=== PATIENT | female | born 1975 | race Caucasian/White ===

== ENCOUNTER → 2021-06-07 08:43 | Outpatient (BNVA) | payer OTHER, MEDICAID, SELFPAY | PROVIDERS: PCP Internal Medicine; Visit Provider Psychiatry & Neurology Neurology | DX: G43.109 Migraine with aura, not intractable, without status migrainosus (principal); R51.9 Headache, unspecified | CPT/HCPCS: 64615; 99212; J0585 ==

== ENCOUNTER → 2021-09-17 08:22 | Outpatient (BNVA) | payer OTHER, SELFPAY | PROVIDERS: PCP Internal Medicine; Visit Provider Psychiatry & Neurology Neurology | DX: G43.109 Migraine with aura, not intractable, without status migrainosus (principal); Z79.899 Other long term (current) drug therapy | CPT/HCPCS: 64615; 99211; J0585 ==

== ENCOUNTER → 2022-03-14 11:05 | Outpatient (BNVA) | payer OTHER, SELFPAY | PROVIDERS: PCP Internal Medicine; Visit Provider Psychiatry & Neurology Neurology | DX: G43.119 Migraine with aura, intractable, without status migrainosus (principal); R47.81 Slurred speech | CPT/HCPCS: 64615; 99211; J0585 ==

== ENCOUNTER 2022-03-26 18:01 | Outpatient (REF) | payer OTHER, SELFPAY ==
--- NOTE | ~2022-03-26 | MR_ITS ---
EXAMINATION: MRI OF THE BRAIN WITHOUT CONTRAST CLINICAL INFORMATION: Slurred speech. COMPARISON: CT scan of the head [facility] 05/11/2019. TECHNIQUE: MRI of the brain was obtained using routine sequences without contrast. FINDINGS: No diffusion abnormalities are identified to suggest an acute or subacute infarct. No mass effect or midline shift is seen. The ventricles and sulci are normal in size. There are a few nonspecific foci of hyperintense T2 and FLAIR signal in the superior frontal gyri anteriorly bilaterally which are nonspecific. No extra-axial fluid collections are seen. The brainstem and cerebellum are normal. No pathologic magnetic susceptibility artifact is identified on the gradient refocused acquisition. The craniovertebral junction, marrow signal, and midline structures are normal. The major intracranial flow-voids at the level of the [place] are preserved. The dural venous sinus flow-voids are maintained. The mastoid air cells and paranasal sinuses are well-aerated. MR/MR head/brain wo con IMPRESSION: 1. There are no acute bleeds or infarcts. No masses are demonstrated. There are mild nonspecific white matter changes.
== END 2022-03-26 18:02 | disposition home or self-care (01) ==
LOC: HO.MRI 18:01
PROVIDERS: Visit Provider Psychiatry & Neurology Neurology
DX: R47.81 Slurred speech (principal); R51.9 Headache, unspecified
CPT/HCPCS: 70551

== ENCOUNTER → 2022-07-04 13:07 | Outpatient (BNVA) | payer OTHER, SELFPAY | PROVIDERS: PCP Internal Medicine; Visit Provider Psychiatry & Neurology Neurology | DX: G43.109 Migraine with aura, not intractable, without status migrainosus (principal); G43.119 Migraine with aura, intractable, without status migrainosus; R47.81 Slurred speech; R51.9 Headache, unspecified | CPT/HCPCS: 64615; 99211; J0585 ==

== ENCOUNTER → 2022-10-03 15:38 | Outpatient (BNVA) | payer OTHER, SELFPAY | PROVIDERS: PCP Internal Medicine; Visit Provider Psychiatry & Neurology Neurology | DX: G43.709 Chronic migraine without aura, not intractable, without status migrainosus (principal) | CPT/HCPCS: 64615; J0585 ==

== ENCOUNTER 2023-01-16 07:30 | Outpatient (AMB) | payer OTHER, SELFPAY ==
[2023-01-16 07:35] VITALS: BP 94/78; PULSE 112; O2SAT 95; BMI 23.7
--- NOTE | 2023-01-16 07:35 | A.OFFVIS_ITS ---
Intake Vital Signs 01/16/23 07:35 Height 5 ft 3 in Weight 134 lb BMI 23.7 BP 94/78 Blood Pressure Location Lt brachial Position Sitting Pulse 112 H Pulse Source Pulse Oximeter Pulse Oximetry (%) 95 Oxygen Delivery Method Room Air Intake Visit Reasons: Botox (Pharm)-confirmed Intake Note: Pt presents in office for Botox. 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 Allergies adhesive Allergy (Mild, Verified 01/16/23 07:39) red and blotchy latex Allergy (Mild, Verified 01/16/23 07:39) Hives Medication List - Last Reconciled 01/16/23 by Rica Rothman MD amitriptyline 75 mg PO BEDTIME carbamazepine ER (Tegretol XR) 100 mg PO BID 30 days citalopram 20 mg PO DAILY citalopram 10 mg PO DAILY cranberry fruit 400 mg PO DAILY esomeprazole magnesium (Nexium) 20 mg PO DAILY estradiol 0.01%(0.1mg/gram) 1 g vaginal 2XW fluticasone propionate 50 mcg/actuation 1 spray intranasal DAILY fluticasone propionate 110 mcg/actuation (Flovent HFA) 1 puff inhalation BID gabapentin TAKE 1 TO 2 TABLETS BY MOUTH TWICE A DAY NEEDED FOR PAIN levonorgestrel-ethinyl estrad 0.1-20 mg-mcg (Aviane) 1 tab PO DAILY loratadine 10 mg PO DAILY onabotulinumtoxinA (Botox) to be injected by physician intramuscularly; Inject muscle of head and neck over 31 sites every 3 months ondansetron HCl 4 mg PO Q8H PRN sumatriptan succinate 1 tab at onset of headaches , repeat in 2 hrs if needed upto 4tabs /day HPI HPI Comments History of Present Illness Details ??? 47y/o female comes for treatment of migraines with botox. ??? Most frequent reported adverse reactions following injection of botox for chronic migraine include neck pain (9%), headache(5%), eyelid ptosis(4%), migraine(4%), muscular weakness(4%), musculuskeletal stiffness(4%), bronchitis(3%), injection site pain (3%), musculoskeletal pain(3%), myalgia(3%), facial paresis(2%), HTN(2%) and muscle spasms(2%) were discussed in detail. ??? Botulinum toxin typeA 200units Lot no C [id number] expiration Jun 2025 was diluted with 4 cc of normal saline . ??? Muscles injected- ??? Frontalis 4 sites ??? Temporalis- 8 sites ??? Occipitalis- 6 sites ??? Cervical paraspinals- 4 sites ??? Trapezius- 6 sites-10 units each self defense instructor 2 sites Procerus 1 site ??? 5 units each in 31 site ??? Total use- 185units ??? Discarded-15units PFSH Medical History Anxiety Arthritis Facial pain Fibromyalgia History of ITP Problems related to lack of adequate sleep Surgical History H/O: hysterectomy History of ankle surgery S/P repair of nasal septum Family History Father HBP (high blood pressure) High cholesterol Mother Fibromyalgia Depression Acute arthritis Diverticulitis Sister Kidney problem Son ADHD Social History Alcohol intake: never Patient Tobacco Use Status: Never used Tobacco Substance Use Type: Marijuana Physical Exam Vital Signs: Last Vital Signs Pulse 112 H 01/16/23 07:35 BP 94/78 01/16/23 07:35 Pulse Ox 95 01/16/23 07:35 Oxygen Delivery Method Room Air 01/16/23 07:35 BMI result Body Mass Index 23.7 Const Orientation/consciousness: patient oriented x3 HEENT Head: Yes normal to inspection, Yes normocephalic and Yes atraumatic Eyes Pupils: Equal, round and reactive pupils present Neuro General: patient oriented x3, gait normal, tone normal, moves all extremities and no focal motor deficits Cranial nerves: Yes CN's II-XII intact bilaterally, Yes Equal, round and reactive pupils present and Yes Normal facial strength present Gait exam (Neuro): Normal gait present Motor exam (neuro): 5/5 motor strength present throughout Office Procedures Botulinum toxin Injection 10224 - Migraine Procedure code (CPT) selection complete Office Meds onabotulinumtoxinA Performing Provider: Rica Rothman MD Administered by: Rica Rothman MD on 01/16/23 08:12 Dose Route Admin Location Lot Number Expiration Date [employer] 185 unit subcut 0705-8324-97 [employer]ERGAN/BOTOX Comments: see hpi Assessment & Plan Assessment & Plan (1) Chronic migraine without aura, not intractable, without status migrainosus: Code(s): G43.709 - Chronic migraine without aura, not intractable, without status migrainosus Plan Patient tolerated the procedure well she will call with any side effects Continue tegretol XR 100mg bid Sumatriptan as needed Orders: Orders AMB Botulinum toxin Injection Today G43.709 - Chronic migraine without aura, not intractable, without status migrainosus Coding Level of Care Code Est Pt Level 1 (91302) Diagnoses Chronic migraine without aura, not intractable, without status migrainosus G43.709 CPT Codes Botox Injection - Botox 3: 74268 - Migraine ([id number])
== END 2023-01-16 08:01 | disposition home or self-care (01) ==
PROVIDERS: Visit Provider Psychiatry & Neurology Neurology
DX: G43.709 Chronic migraine without aura, not intractable, without status migrainosus (principal)
CPT/HCPCS: 64615

== ENCOUNTER → 2023-01-16 07:30 | Outpatient (BNVA) | payer OTHER, SELFPAY | PROVIDERS: Visit Provider Psychiatry & Neurology Neurology | DX: G43.709 Chronic migraine without aura, not intractable, without status migrainosus (principal); M79.7 Fibromyalgia | CPT/HCPCS: 64615; 99211; J0585 ==

== ENCOUNTER 2023-05-07 07:32 | Outpatient (AMB) | payer OTHER, SELFPAY ==
--- NOTE | 2023-05-07 07:38 | MHC.OFFVIS ---
Intake Vital Signs 05/07/23 07:41 Height 5 ft 3 in Intake Visit Reasons: Botox (Pharm)-Confirmed Intake Note: Patient presents for botox injection. Allergies adhesive Allergy (Mild, Verified 05/07/23 07:40) red and blotchy latex Allergy (Mild, Verified 05/07/23 07:40) Hives Medication List - Last Reconciled 05/07/23 by Rica Rothman MD amitriptyline 75 mg PO BEDTIME carbamazepine ER (Tegretol XR) 100 mg PO BID 30 days citalopram 20 mg PO DAILY citalopram 10 mg PO DAILY cranberry fruit 400 mg PO DAILY esomeprazole magnesium (Nexium) 20 mg PO DAILY estradiol 0.01%(0.1mg/gram) 1 g vaginal 2XW fluticasone propionate 50 mcg/actuation 1 spray intranasal DAILY fluticasone propionate 110 mcg/actuation (Flovent HFA) 1 puff inhalation BID gabapentin TAKE 1 TO 2 TABLETS BY MOUTH TWICE A DAY NEEDED FOR PAIN levonorgestrel-ethinyl estrad 0.1-20 mg-mcg (Aviane) 1 tab PO DAILY loratadine 10 mg PO DAILY onabotulinumtoxinA (Botox) to be injected by physician intramuscularly; Inject muscle of head and neck over 31 sites every 3 months ondansetron HCl 4 mg PO Q8H PRN sumatriptan succinate 1 tab at onset of headaches , repeat in 2 hrs if needed upto 4tabs /day HPI HPI Comments History of Present Illness Details ??? 47y/o female comes for treatment of migraines with botox. How many migraine days prior to botox- 30 days /month How long do the migraines last1-2 days Intensity of zijoyntw25/10 ER visits related to migraine- multiple Effectiveness of botox from last two treatment(s) How many migraine days since receiving treatment: 1-2 days a month Change? in intensity of migraine?decreased Change in frequency of migraine?decreased Change in use of acute medication for migraine?rare use Change in quality of life?improved ER visits related to migraine?none Have at least three months elapsed since last treatment (Last botox date - frequency of injections)01/2023 ??? Most frequent reported adverse reactions following injection of botox for chronic migraine include neck pain (9%), headache(5%), eyelid ptosis(4%), migraine(4%), muscular weakness(4%), musculuskeletal stiffness(4%), bronchitis(3%), injection site pain (3%), musculoskeletal pain(3%), myalgia(3%), facial paresis(2%), HTN(2%) and muscle spasms(2%) were discussed in detail. ??? Botulinum toxin typeA 200units Lot no C [id number] expiration August 2025 was diluted with 4 cc of normal saline . ??? Muscles injected- ??? Frontalis 4 sites ??? Temporalis- 8 sites ??? Occipitalis- 6 sites ??? Cervical paraspinals- 4 sites ??? Trapezius- 6 sites-10 units each interactive graphic designer 2 sites Procerus 1 site ??? 5 units each in 31 site ??? Total use- 185units ??? Discarded-15units [facility] Medical History Facial pain Problems related to lack of adequate sleep Fibromyalgia History of ITP Anxiety Arthritis Surgical History History of ankle surgery H/O: hysterectomy S/P repair of nasal septum Family History Father HBP (high blood pressure) High cholesterol Mother Fibromyalgia Depression Acute arthritis Diverticulitis Sister Kidney problem Son ADHD Social History Alcohol intake: never Patient Tobacco Use Status: Never used Tobacco Substance Use Type: Marijuana Physical Exam Const Orientation/consciousness: patient oriented x3 HEENT Head: Yes normal to inspection, Yes normocephalic and Yes atraumatic Eyes Pupils: Equal, round and reactive pupils present Neuro General: patient oriented x3, gait normal, tone normal, moves all extremities and no focal motor deficits Cranial nerves: Yes CN's II-XII intact bilaterally, Yes Equal, round and reactive pupils present and Yes Normal facial strength present Gait exam (Neuro): Normal gait present Motor exam (neuro): 5/5 motor strength present throughout Office Procedures Botulinum toxin Injection 91014 - Migraine Procedure code (CPT) selection complete Office Meds onabotulinumtoxinA 200 unit solution for injection Performing Provider: Rica Rothman MD Performing Location: [facility] Administered by: Rica Rothman MD on 05/07/23 08:23 Dose Route Admin Location Dispensed Lot Number Expiration Date [employer] 200 unit subcut 200 units [id number] 08/17/25 9178-6559-82 ALLERGAN/BOTOX Comments: see hPI Assessment & Plan Assessment & Plan (1) Chronic migraine without aura, not intractable, without status migrainosus: Code(s): G43.709 - Chronic migraine without aura, not intractable, without status migrainosus Plan Patient tolerated the procedure well she will call with any side effects Continue tegretol XR 100mg bid Sumatriptan as needed Orders: Orders AMB Botulinum toxin Injection Today G43.709 - Chronic migraine without aura, not intractable, without status migrainosus Coding Level of Care Code Est Pt Level 1 (17032) Diagnoses Chronic migraine without aura, not intractable, without status migrainosus G43.709 CPT Codes Botox Injection - Botox 3: 60477 - Migraine ([id number])
== END 2023-05-07 08:01 | disposition home or self-care (01) ==
PROVIDERS: PCP Internal Medicine; Visit Provider Psychiatry & Neurology Neurology
DX: G43.709 Chronic migraine without aura, not intractable, without status migrainosus (principal)
CPT/HCPCS: 64615

== ENCOUNTER → 2023-05-07 07:32 | Outpatient (BNVA) | payer OTHER, SELFPAY | PROVIDERS: PCP Internal Medicine; Visit Provider Psychiatry & Neurology Neurology | DX: G43.709 Chronic migraine without aura, not intractable, without status migrainosus (principal) | CPT/HCPCS: 64615; 99211; J0585 ==

== ENCOUNTER 2023-08-26 08:57 | Outpatient (AMB) | payer OTHER, SELFPAY ==
--- NOTE | 2023-08-26 09:00 | MHC.OFFVIS ---
Intake Vital Signs 08/26/23 09:01 Height 5 ft 3 in Weight 128 lb 6 oz BMI 22.7 BP 112/74 Blood Pressure Location Rt brachial Position Left Lateral Respiration 16 Pulse 106 H Pulse Source Pulse Oximeter Pulse Oximetry (%) 100 Oxygen Delivery Method Room Air Intake Visit Reasons: Botox-LVM Intake Note: Pt presents to the office for Botox injections. 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 Allergies adhesive Allergy (Mild, Verified 08/26/23 09:00) red and blotchy latex Allergy (Mild, Verified 08/26/23 09:00) Hives Medication List - Last Reconciled 08/26/23 by Rica Rothman MD amitriptyline 75 mg PO BEDTIME carbamazepine ER (Tegretol XR) 100 mg PO BID 90 days citalopram 20 mg PO DAILY citalopram 10 mg PO DAILY 90 days cranberry fruit 400 mg PO DAILY esomeprazole magnesium (Nexium) 20 mg PO DAILY estradiol 0.01%(0.1mg/gram) 1 g vaginal 2XW fluticasone propionate 50 mcg/actuation 1 spray intranasal DAILY fluticasone propionate 110 mcg/actuation (Flovent HFA) 1 puff inhalation BID gabapentin TAKE 1 TO 2 TABLETS BY MOUTH TWICE A DAY NEEDED FOR PAIN levonorgestrel-ethinyl estrad 0.1-20 mg-mcg (Aviane) 1 tab PO DAILY loratadine 10 mg PO DAILY onabotulinumtoxinA (Botox) to be injected by physician intramuscularly; Inject muscle of head and neck over 31 sites every 3 months ondansetron HCl 4 mg PO Q8H PRN sumatriptan succinate 1 tab at onset of headaches , repeat in 2 hrs if needed upto 4tabs /day HPI HPI Comments History of Present Illness Details ??? 47y/o female comes for treatment of migraines with botox. How many migraine days prior to botox- 30 days /month How long do the migraines last1-2 days Intensity of lpnrakgz25/10 ER visits related to migraine- multiple Effectiveness of botox from last two treatment(s) How many migraine days since receiving treatment: 1-2 days a month Change? in intensity of migraine?decreased Change in frequency of migraine?decreased Change in use of acute medication for migraine?rare use Change in quality of life?improved ER visits related to migraine?none Have at least three months elapsed since last treatment (Last botox date - frequency of injections)04/2023 ??? Most frequent reported adverse reactions following injection of botox for chronic migraine include neck pain (9%), headache(5%), eyelid ptosis(4%), migraine(4%), muscular weakness(4%), musculuskeletal stiffness(4%), bronchitis(3%), injection site pain (3%), musculoskeletal pain(3%), myalgia(3%), facial paresis(2%), HTN(2%) and muscle spasms(2%) were discussed in detail. ??? Botulinum toxin typeA 200units Lot no C [id number] expiration October 2025 was diluted with 4 cc of normal saline . ??? Muscles injected- ??? Frontalis 4 sites ??? Temporalis- 8 sites ??? Occipitalis- 6 sites ??? Cervical paraspinals- 4 sites ??? Trapezius- 6 sites-10 units each bingo worker 2 sites Procerus 1 site ??? 5 units each in 31 site ??? Total use- 185units ??? Discarded-15units [facility] Medical History Facial pain Problems related to lack of adequate sleep Fibromyalgia History of ITP Anxiety Arthritis Surgical History History of ankle surgery H/O: hysterectomy S/P repair of nasal septum Family History Father HBP (high blood pressure) High cholesterol Mother Fibromyalgia Depression Acute arthritis Diverticulitis Sister Kidney problem Son ADHD Social History Alcohol intake: never Patient Tobacco Use Status: Never used Tobacco Substance Use Type: Marijuana Physical Exam Vital Signs: Last Vital Signs Pulse 106 H 08/26/23 09:01 Resp 16 08/26/23 09:01 BP 112/74 08/26/23 09:01 Pulse Ox 100 08/26/23 09:01 Oxygen Delivery Method Room Air 08/26/23 09:01 BMI result Body Mass Index 22.7 Const Orientation/consciousness: patient oriented x3 HEENT Head: Yes normal to inspection, Yes normocephalic and Yes atraumatic Eyes Pupils: Equal, round and reactive pupils present Neuro General: patient oriented x3, gait normal, tone normal, moves all extremities and no focal motor deficits Cranial nerves: Yes CN's II-XII intact bilaterally, Yes Equal, round and reactive pupils present and Yes Normal facial strength present Gait exam (Neuro): Normal gait present Motor exam (neuro): 5/5 motor strength present throughout Office Procedures Botulinum toxin Injection 36561 - Migraine Procedure code (CPT) selection complete Office Meds onabotulinumtoxinA 200 unit solution for injection Performing Provider: Rica Rothman MD Performing Location: [facility] Administered by: Rica Rothman MD on 08/26/23 09:31 Dose Route Admin Location Dispensed Lot Number Expiration Date [facility] Knitter Mechanic 185 unit IM 200 units [id number] 10/17/25 6305-7274-07 [employer]ERGAN/BOTOX Comments: see HPI Assessment & Plan Assessment & Plan (1) Chronic migraine without aura, not intractable, without status migrainosus: Code(s): G43.709 - Chronic migraine without aura, not intractable, without status migrainosus Plan Patient tolerated the procedure well she will call with any side effects Continue tegretol XR 100mg bid Sumatriptan as needed Orders: Orders AMB Botulinum toxin Injection Today G43.709 - Chronic migraine without aura, not intractable, without status migrainosus Medications: New onabotulinumtoxinA 200 units IM ONCE 1 ea 0RF migraine G43.709 - Chronic migraine without aura, not intractable, without status migrainosus Coding Level of Care Code Est Pt Level 1 (78779) Diagnoses Chronic migraine without aura, not intractable, without status migrainosus G43.709 CPT Codes Botox Injection - Botox 3: 75374 - Migraine ([id number])
[2023-08-26 09:01] VITALS: BP 112/74; PULSE 106; RESP 16; O2SAT 100; BMI 22.7
== END 2023-08-26 09:21 | disposition home or self-care (01) ==
PROVIDERS: PCP Internal Medicine; Visit Provider Psychiatry & Neurology Neurology
DX: G43.709 Chronic migraine without aura, not intractable, without status migrainosus (principal)
CPT/HCPCS: 64615

== ENCOUNTER → 2023-08-26 08:57 | Outpatient (BNVA) | payer OTHER, SELFPAY | PROVIDERS: PCP Internal Medicine; Visit Provider Psychiatry & Neurology Neurology | DX: G43.709 Chronic migraine without aura, not intractable, without status migrainosus (principal); Z79.899 Other long term (current) drug therapy | CPT/HCPCS: 64615; 99211; J0585 ==

== ENCOUNTER 2023-12-03 07:31 | Outpatient (AMB) | payer OTHER, SELFPAY ==
--- NOTE | 2023-12-03 07:35 | A.OFFVIS_ITS ---
Vital Signs 12/03/23 07:43 Height 5 ft 3 in Weight 126 lb BMI 22.3 BP 98/68 Blood Pressure Location Rt brachial Position Sitting Respiration 16 Pulse 105 H Pulse Source Pulse Oximeter Pulse Oximetry (%) 98 Oxygen Delivery Method Room Air Intake Visit Reasons: Botox - Confirmed for Intake Note: Pt presents to the office for Botox injections for chronic migraines. Visual Journalist Required: No Allergies adhesive Allergy (Mild, Verified 12/03/23 07:35) red and blotchy latex Allergy (Mild, Verified 12/03/23 07:35) Hives Medication List - Last Reconciled 12/03/23 by Rica Rothman MD amitriptyline 75 mg PO BEDTIME carbamazepine ER (Tegretol XR) 100 mg PO BID 90 days citalopram 20 mg PO DAILY citalopram 10 mg PO DAILY 90 days cranberry fruit 400 mg PO DAILY esomeprazole magnesium (Nexium) 20 mg PO DAILY estradiol 0.01%(0.1mg/gram) 1 g vaginal 2XW fluticasone propionate 50 mcg/actuation 1 spray intranasal DAILY fluticasone propionate 110 mcg/actuation (Flovent HFA) 1 puff inhalation BID gabapentin TAKE 1 TO 2 TABLETS BY MOUTH TWICE A DAY NEEDED FOR PAIN levonorgestrel-ethinyl estrad 0.1-20 mg-mcg (Aviane) 1 tab PO DAILY loratadine 10 mg PO DAILY onabotulinumtoxinA (Botox) to be injected by physician intramuscularly; Inject muscle of head and neck over 31 sites every 3 months ondansetron HCl 4 mg PO Q8H PRN sumatriptan succinate 1 tab at onset of headaches , repeat in 2 hrs if needed upto 4tabs /day HPI Comments Details: ??? 48y/o female comes for treatment of migraines with botox. How many migraine days prior to botox- 30 days /month How long do the migraines last1-2 days Intensity of quwdwbsu32/10 ER visits related to migraine- multiple Effectiveness of botox from last two treatment(s) How many migraine days since receiving treatment: 1-2 days a month Change? in intensity of migraine?decreased Change in frequency of migraine?decreased Change in use of acute medication for migraine?rare use Change in quality of life?improved ER visits related to migraine?none Have at least three months elapsed since last treatment (Last botox date - frequency of injections)04/2023 ??? Most frequent reported adverse reactions following injection of botox for chronic migraine include neck pain (9%), headache(5%), eyelid ptosis(4%), migraine(4%), muscular weakness(4%), musculuskeletal stiffness(4%), bronchitis(3%), injection site pain (3%), musculoskeletal pain(3%), myalgia(3%), facial paresis(2%), HTN(2%) and muscle spasms(2%) were discussed in detail. ??? Botulinum toxin typeA 200units Lot no C [id number] expiration Dec 2025 was diluted with 4 cc of normal saline . ??? Muscles injected- ??? Frontalis 4 sites ??? Temporalis- 8 sites ??? Occipitalis- 6 sites ??? Cervical paraspinals- 4 sites ??? Trapezius- 6 sites-10 units each historical guide 2 sites Procerus 1 site ??? 5 units each in 31 site ??? Total use- 185units ??? Discarded-15units [facility] Medical History (Updated 12/03/23 @ 08:36 by Rica Rothman MD) Chronic migraine without aura, intractable, without status migrainosus Facial pain Problems related to lack of adequate sleep Fibromyalgia History of ITP Anxiety Arthritis Surgical History History of ankle surgery H/O: hysterectomy S/P repair of nasal septum Family History Father HBP (high blood pressure) High cholesterol Mother Fibromyalgia Depression Acute arthritis Diverticulitis Sister Kidney problem Son ADHD Social History Alcohol intake: never Patient Tobacco Use Status: Never used Tobacco Substance Use Type: Marijuana Physical Exam Vital Signs: Last Vital Signs Pulse 105 H 12/03/23 07:43 Resp 16 12/03/23 07:43 BP 98/68 12/03/23 07:43 Pulse Ox 98 12/03/23 07:43 Oxygen Delivery Method Room Air 12/03/23 07:43 BMI result Body Mass Index 22.3 Const Orientation/consciousness: patient oriented x3 HEENT Head: Yes normal to inspection, Yes normocephalic and Yes atraumatic Eyes Pupils: Equal, round and reactive pupils present Neuro General: patient oriented x3, gait normal, tone normal, moves all extremities and no focal motor deficits Cranial nerves: Yes CN's II-XII intact bilaterally, Yes Equal, round and reactive pupils present and Yes Normal facial strength present Gait exam (Neuro): Normal gait present Motor exam (neuro): 5/5 motor strength present throughout Office Procedures Botulinum toxin Injection 59213 - Migraine Procedure code (CPT) selection complete Office Meds onabotulinumtoxinA 200 unit solution for injection Performing Provider: Rica Rothman MD Performing Location: [facility] Administered by: Rica Rothman MD on 12/03/23 08:46 Dose Route Admin Location Dispensed Lot Number Expiration Date [facility] [employer]aver 200 unit subcut 200 units [id number] 12/17/25 3174-8312-98 [employer]ERGAN/BOTOX Comments: see HPI Assessment & Plan Assessment & Plan (1) Chronic migraine without aura, intractable, without status migrainosus: Code(s): G43.719 - Chronic migraine without aura, intractable, without status migrainosus Category: Medical Plan Patient tolerated the procedure well she will call with any side effects Orders: Orders AMB Botulinum toxin Injection Today G43.719 - Chronic migraine without aura, intractable, without status migrainosus Medications: New onabotulinumtoxinA 200 units subcut ONCE 1 ea 0RF migraine G43.719 - Chronic migraine without aura, intractable, without status migrainosus Coding Level of Care Code Est Pt Level 1 (36313) Diagnoses Chronic migraine without aura, intractable, without status migrainosus G43.719 CPT Codes Botox Injection - Botox 3: 31076 - Migraine ([id number])
[2023-12-03 07:37] VITALS: BMI 22.7
[2023-12-03 07:43] VITALS: BP 98/68; PULSE 105; RESP 16; O2SAT 98; BMI 22.3
== END 2023-12-03 08:03 | disposition home or self-care (01) ==
PROVIDERS: PCP Internal Medicine; Visit Provider Psychiatry & Neurology Neurology
DX: G43.719 Chronic migraine without aura, intractable, without status migrainosus (principal)
CPT/HCPCS: 64615

== ENCOUNTER → 2023-12-03 07:31 | Outpatient (BNVA) | payer OTHER, SELFPAY | PROVIDERS: PCP Internal Medicine; Visit Provider Psychiatry & Neurology Neurology | DX: G43.719 Chronic migraine without aura, intractable, without status migrainosus (principal) | CPT/HCPCS: 64615; 99211; J0585 ==

== ENCOUNTER 2024-03-10 07:36 | Outpatient (AMB) | payer OTHER, SELFPAY ==
--- NOTE | 2024-03-10 07:36 | A.OFFVIS_ITS ---
Vital Signs 03/10/24 07:37 Height 5 ft 3 in Weight 126 lb BMI 22.3 Intake Visit Reasons: Botox Intake Note: Patiient presents for botox Allergies adhesive Allergy (Mild, Verified 03/10/24 07:41) red and blotchy latex Allergy (Mild, Verified 03/10/24 07:41) Hives Medication List - Last Reconciled 03/10/24 by Rica Rothman MD amitriptyline 75 mg PO BEDTIME carbamazepine ER (Tegretol XR) 100 mg PO BID 90 days citalopram 20 mg PO DAILY citalopram 10 mg PO DAILY 90 days cranberry fruit 400 mg PO DAILY esomeprazole magnesium (Nexium) 20 mg PO DAILY estradiol 0.01%(0.1mg/gram) 1 g vaginal 2XW fluticasone propionate 50 mcg/actuation 1 spray intranasal DAILY fluticasone propionate 110 mcg/actuation (Flovent HFA) 1 puff inhalation BID gabapentin TAKE 1 TO 2 TABLETS BY MOUTH TWICE A DAY NEEDED FOR PAIN levonorgestrel-ethinyl estrad 0.1-20 mg-mcg (Aviane) 1 tab PO DAILY loratadine 10 mg PO DAILY onabotulinumtoxinA (Botox) to be injected by physician intramuscularly; Inject muscle of head and neck over 31 sites every 3 months ondansetron HCl 4 mg PO Q8H PRN sumatriptan succinate 1 tab at onset of headaches , repeat in 2 hrs if needed upto 4tabs /day HPI Comments Details: ??? 48y/o female comes for treatment of migraines with botox. How many migraine days prior to botox- 30 days /month How long do the migraines last1-2 days Intensity of /10 ER visits related to migraine- multiple Effectiveness of botox from last two treatment(s) How many migraine days since receiving treatment: 1-2 days a month Change? in intensity of migraine?decreased Change in frequency of migraine?decreased Change in use of acute medication for migraine?rare use Change in quality of life?improved ER visits related to migraine?none Have at least three months elapsed since last treatment- yes ??? Most frequent reported adverse reactions following injection of botox for chronic migraine include neck pain (9%), headache(5%), eyelid ptosis(4%), migraine(4%), muscular weakness(4%), musculuskeletal stiffness(4%), bronchitis(3%), injection site pain (3%), musculoskeletal pain(3%), myalgia(3%), facial paresis(2%), HTN(2%) and muscle spasms(2%) were discussed in detail. ??? Botulinum toxin typeA 200units Lot no [id number] expiration Apr 2026 was diluted with 4 cc of normal saline . ??? Muscles injected- ??? Frontalis 4 sites ??? Temporalis- 8 sites ??? Occipitalis- 6 sites ??? Cervical paraspinals- 4 sites ??? Trapezius- 6 sites-10 units each fitness sales associate 2 sites Procerus 1 site ??? 5 units each in 31 site ??? Total use- 185units ??? Discarded-15units [facility] Medical History Chronic migraine without aura, intractable, without status migrainosus Facial pain Problems related to lack of adequate sleep Fibromyalgia History of ITP Anxiety Arthritis Surgical History History of ankle surgery H/O: hysterectomy S/P repair of nasal septum Family History Father HBP (high blood pressure) High cholesterol Mother Fibromyalgia Depression Acute arthritis Diverticulitis Sister Kidney problem Son ADHD Social History Alcohol intake: never Patient Tobacco Use Status: Never used Tobacco Substance Use Type: Marijuana Physical Exam Vital Signs: BMI result Body Mass Index 22.3 Const Orientation/consciousness: patient oriented x3 HEENT Head: Yes normal to inspection, Yes normocephalic and Yes atraumatic Eyes Pupils: Equal, round and reactive pupils present Neuro General: patient oriented x3, gait normal, tone normal, moves all extremities and no focal motor deficits Cranial nerves: Yes CN's II-XII intact bilaterally, Yes Equal, round and reactive pupils present and Yes Normal facial strength present Gait exam (Neuro): Normal gait present Motor exam (neuro): 5/5 motor strength present throughout Office Procedures Botulinum toxin Injection 55299 - Migraine Procedure code (CPT) selection complete Office Meds onabotulinumtoxinA 200 unit solution for injection Performing Provider: Rica Rothman MD Performing Location: [facility] [place] Administered by: Rica Rothman MD on 03/10/24 09:28 Dose Route Admin Location Dispensed Lot Number Expiration Date NDC Commercial Drone Pilot 185 unit subcut 200 units [id number] 04/18/26 9029-8571-23 ALLERGAN/BOTOX Comments: see HPI Assessment & Plan Assessment & Plan (1) Chronic migraine without aura, intractable, without status migrainosus: Code(s): G43.719 - Chronic migraine without aura, intractable, without status migrainosus Category: Medical Plan Patient tolerated the procedure well she will call with any side effects Orders: Orders AMB Botulinum toxin Injection Today G43.719 - Chronic migraine without aura, intractable, without status migrainosus Medications: New onabotulinumtoxinA 200 units subcut ONCE 1 ea 0RF Migraine G43.719 - Chronic migraine without aura, intractable, without status migrainosus Coding Level of Care Code Est Pt Level 1 (60044) Diagnoses Chronic migraine without aura, intractable, without status migrainosus G43.719 CPT Codes Botox Injection - Botox 3: 06673 - Migraine ([id number])
[2024-03-10 07:37] VITALS: BMI 22.3
== END 2024-03-10 08:04 | disposition home or self-care (01) ==
PROVIDERS: PCP Internal Medicine; Visit Provider Psychiatry & Neurology Neurology
DX: G43.719 Chronic migraine without aura, intractable, without status migrainosus (principal)
CPT/HCPCS: 64615

== ENCOUNTER → 2024-03-10 07:36 | Outpatient (BNVA) | payer OTHER, SELFPAY | PROVIDERS: PCP Internal Medicine; Visit Provider Psychiatry & Neurology Neurology | DX: G43.719 Chronic migraine without aura, intractable, without status migrainosus (principal) | CPT/HCPCS: 64615; 99211; J0585 ==

== ENCOUNTER 2024-06-08 07:36 | Outpatient (AMB) | payer OTHER, SELFPAY ==
--- NOTE | 2024-06-08 07:37 | A.OFFVIS_ITS ---
Vital Signs 06/08/24 07:37 Height 5 ft 3 in Intake Visit Reasons: Botox Intake Note: Patient presents for botox Allergies adhesive Allergy (Mild, Verified 03/10/24 07:41) red and blotchy latex Allergy (Mild, Verified 03/10/24 07:41) Hives Medication List - Last Reconciled 06/08/24 by Rica Rothman MD amitriptyline 75 mg PO BEDTIME carbamazepine ER (Tegretol XR) 100 mg PO BID 90 days citalopram 20 mg PO DAILY citalopram 10 mg PO DAILY 90 days cranberry fruit 400 mg PO DAILY esomeprazole magnesium (Nexium) 20 mg PO DAILY estradiol 0.01%(0.1mg/gram) 1 g vaginal 2XW fluticasone propionate 50 mcg/actuation 1 spray intranasal DAILY fluticasone propionate 110 mcg/actuation (Flovent HFA) 1 puff inhalation BID gabapentin TAKE 1 TO 2 TABLETS BY MOUTH TWICE A DAY NEEDED FOR PAIN levonorgestrel-ethinyl estrad 0.1-20 mg-mcg (Aviane) 1 tab PO DAILY loratadine 10 mg PO DAILY onabotulinumtoxinA (Botox) to be injected by physician intramuscularly; Inject muscle of head and neck over 31 sites every 3 months ondansetron HCl 4 mg PO Q8H PRN sumatriptan succinate 1 tab at onset of headaches , repeat in 2 hrs if needed upto 4tabs /day HPI Comments Details: ??? 48y/o female comes for treatment of migraines with botox. How many migraine days prior to botox- 30 days /month How long do the migraines last1-2 days Intensity of [id number]/10 ER visits related to migraine- multiple Effectiveness of botox from last two treatment(s) How many migraine days since receiving treatment: 1-2 days a month Change? in intensity of migraine?decreased Change in frequency of migraine?decreased Change in use of acute medication for migraine?rare use Change in quality of life?improved ER visits related to migraine?none Have at least three months elapsed since last treatment- yes ??? Most frequent reported adverse reactions following injection of botox for chronic migraine include neck pain (9%), headache(5%), eyelid ptosis(4%), migraine(4%), muscular weakness(4%), musculuskeletal stiffness(4%), bronchitis(3%), injection site pain (3%), musculoskeletal pain(3%), myalgia(3%), facial paresis(2%), HTN(2%) and muscle spasms(2%) were discussed in detail. ??? Botulinum toxin typeA 200units Lot no [id number] expiration Jan 2026 was diluted with 4 cc of normal saline . ??? Muscles injected- ??? Frontalis 4 sites ??? Temporalis- 8 sites ??? Occipitalis- 6 sites ??? Cervical paraspinals- 4 sites ??? Trapezius- 6 sites-10 units each tailor garment fitter 2 sites Procerus 1 site ??? 5 units each in 31 site ??? Total use- 185units ??? Discarded-15units [facility] Medical History Chronic migraine without aura, intractable, without status migrainosus Facial pain Problems related to lack of adequate sleep Fibromyalgia History of ITP Anxiety Arthritis Surgical History History of ankle surgery H/O: hysterectomy S/P repair of nasal septum Family History Father HBP (high blood pressure) High cholesterol Mother Fibromyalgia Depression Acute arthritis Diverticulitis Sister Kidney problem Son ADHD Social History Alcohol intake: never Patient Tobacco Use Status: Never used Tobacco Substance Use Type: Marijuana Physical Exam Const Orientation/consciousness: patient oriented x3 HEENT Head: Yes normal to inspection, Yes normocephalic and Yes atraumatic Eyes Pupils: Equal, round and reactive pupils present Neuro General: patient oriented x3, gait normal, tone normal, moves all extremities and no focal motor deficits Cranial nerves: Yes CN's II-XII intact bilaterally, Yes Equal, round and reactive pupils present and Yes Normal facial strength present Gait exam (Neuro): Normal gait present Motor exam (neuro): 5/5 motor strength present throughout Office Procedures Botulinum toxin Injection 34216 - Migraine Procedure code (CPT) selection complete Office Meds onabotulinumtoxinA 200 unit solution for injection Performing Provider: Rica Rothman MD Performing Location: [facility] [place] [facility] Administered by: Rica Rothman MD on 06/08/24 08:45 Dose Route Admin Location Dispensed Lot Number Expiration Date [facility] Electromedical Service Engineer 185 unit subcut 200 units [id number] ALLERGAN/BOTOX Comments: see hpi Assessment & Plan Assessment & Plan (1) Chronic migraine without aura, intractable, without status migrainosus: Code(s): G43.719 - Chronic migraine without aura, intractable, without status migrainosus Category: Medical Plan Patient tolerated the procedure well she will call with any side effects Coding Level of Care Code Est Pt Level 1 (54028) Diagnoses Chronic migraine without aura, intractable, without status migrainosus G43.719 CPT Codes Botox Injection - Botox 3: 58501 - Migraine ([id number])
== END 2024-06-08 08:09 | disposition home or self-care (01) ==
PROVIDERS: PCP Internal Medicine; Visit Provider Psychiatry & Neurology Neurology
DX: G43.719 Chronic migraine without aura, intractable, without status migrainosus (principal)
CPT/HCPCS: 64615

== ENCOUNTER → 2024-06-08 07:36 | Outpatient (BNVA) | payer OTHER, SELFPAY | PROVIDERS: PCP Internal Medicine; Visit Provider Psychiatry & Neurology Neurology | DX: G43.719 Chronic migraine without aura, intractable, without status migrainosus (principal) | CPT/HCPCS: 64615; 99211; J0585 ==

== ENCOUNTER 2024-09-28 10:30 | Outpatient (AMB) | payer OTHER, SELFPAY ==
--- NOTE | 2024-09-28 10:31 | A.OFFVIS_ITS ---
Vital Signs 09/28/24 10:38 Height 5 ft 3 in Weight 126 lb BMI 22.3 Pulse 102 H Pulse Source Pulse Oximeter Pulse Oximetry (%) 99 Oxygen Delivery Method Room Air Intake Visit Reasons: Botox-Conf Intake Note: patient presents for botox injection Allergies adhesive Allergy (Mild, Verified 09/28/24 10:35) red and blotchy latex Allergy (Mild, Verified 09/28/24 10:35) Hives Medication List - Last Reconciled 09/28/24 by Rica Rothman MD amitriptyline 75 mg PO BEDTIME carbamazepine ER (Tegretol XR) 100 mg PO BID 90 days citalopram 20 mg PO DAILY citalopram 10 mg PO DAILY 90 days cranberry fruit 400 mg PO DAILY esomeprazole magnesium (Nexium) 20 mg PO DAILY estradiol 0.01%(0.1mg/gram) 1 g vaginal 2XW gabapentin TAKE 1 TO 2 TABLETS BY MOUTH TWICE A DAY NEEDED FOR PAIN loratadine 10 mg PO DAILY onabotulinumtoxinA (Botox) to be injected by physician intramuscularly; Inject muscle of head and neck over 31 sites every 3 months ondansetron HCl 4 mg PO Q8H PRN sumatriptan succinate 1 tab at onset of headaches , repeat in 2 hrs if needed upto 4tabs /day HPI Comments Details: ??? 49y/o female comes for treatment of migraines with botox. How many migraine days prior to botox- 30 days /month How long do the migraines last1-2 days Intensity of vimofaux77/10 ER visits related to migraine- multiple Effectiveness of botox from last two treatment(s) How many migraine days since receiving treatment: 1-2 days a month Change? in intensity of migraine?decreased Change in frequency of migraine?decreased Change in use of acute medication for migraine?rare use Change in quality of life?improved ER visits related to migraine?none Have at least three months elapsed since last treatment- yes ??? Most frequent reported adverse reactions following injection of botox for chronic migraine include neck pain (9%), headache(5%), eyelid ptosis(4%), migraine(4%), muscular weakness(4%), musculuskeletal stiffness(4%), bronchitis(3%), injection site pain (3%), musculoskeletal pain(3%), myalgia(3%), facial paresis(2%), HTN(2%) and muscle spasms(2%) were discussed in detail. ??? Botulinum toxin typeA 200units Lot no [id number] expiration August 2026 was diluted with 4 cc of normal saline . ??? Muscles injected- ??? Frontalis 4 sites ??? Temporalis- 8 sites ??? Occipitalis- 6 sites ??? Cervical paraspinals- 4 sites ??? Trapezius- 6 sites-10 units each logging worker 2 sites Procerus 1 site ??? 5 units each in 31 site ??? Total use- 185units ??? Discarded-15units [facility] Medical History Chronic migraine without aura, intractable, without status migrainosus Facial pain Problems related to lack of adequate sleep Fibromyalgia History of ITP Anxiety Arthritis Surgical History History of ankle surgery H/O: hysterectomy S/P repair of nasal septum Family History Father HBP (high blood pressure) High cholesterol Mother Fibromyalgia Depression Acute arthritis Diverticulitis Sister Kidney problem Son ADHD Social History Alcohol intake: never Patient Tobacco Use Status: Never used Tobacco Substance Use Type: Marijuana Physical Exam Vital Signs: Last Vital Signs Pulse 102 H 09/28/24 10:38 Pulse Ox 99 09/28/24 10:38 Oxygen Delivery Method Room Air 09/28/24 10:38 BMI result Body Mass Index 22.3 Const Orientation/consciousness: patient oriented x3 HEENT Head: Yes normal to inspection, Yes normocephalic and Yes atraumatic Eyes Pupils: Equal, round and reactive pupils present Neuro General: patient oriented x3, gait normal, tone normal, moves all extremities and no focal motor deficits Cranial nerves: Yes CN's II-XII intact bilaterally, Yes Equal, round and reactive pupils present and Yes Normal facial strength present Gait exam (Neuro): Normal gait present Motor exam (neuro): 5/5 motor strength present throughout Office Procedures Botulinum toxin Injection 74605 - Migraine Procedure code (CPT) selection complete Office Meds onabotulinumtoxinA 200 unit solution for injection Performing Provider: Rica Rothman MD Performing Location: [facility] [place] [facility] Administered by: Rica Rothman MD on 09/28/24 11:02 Dose Route Admin Location Dispensed Lot Number Expiration Date NDC Packing Room Supervisor 185 unit subcut 200 units [id number] ALLERGAN/BOTOX Comments: see hpi Assessment & Plan Assessment & Plan (1) Chronic migraine without aura, intractable, without status migrainosus: Code(s): G43.719 - Chronic migraine without aura, intractable, without status migrainosus Category: Medical Plan Patient tolerated the procedure well she will call with any side effects Orders: Orders AMB Botulinum toxin Injection Today G43.719 - Chronic migraine without aura, intractable, without status migrainosus Medications: New onabotulinumtoxinA 200 units subcut ONCE 1 ea 0RF migraine G43.719 - Chronic migraine without aura, intractable, without status migrainosus Coding Level of Care Code Est Pt Level 1 (75374) Diagnoses Chronic migraine without aura, intractable, without status migrainosus G43.719 CPT Codes Botox Injection - Botox 3: 51408 - Migraine ([id number])
[2024-09-28 10:38] VITALS: PULSE 102; O2SAT 99; BMI 22.3
--- OUTSIDE RECORDS SUMMARY | 2024-09-28 11:38 | XMS_ITS | Encounter Summary ---
Author Organization [facility] Address [address] [place] [id number] Phone Care Team Providers Care Cleaner Name Role Phone Lluvia Lyn MD Primary Care Provider [phone] Judie Villarreal MD Primary Care Provi natali Encounter Details Date Type Department Care Team (Late st Contact Info) Description 03/07/2021 Ancillary Orders [facility],Outside Imaging [address] [place] [address] System, Provider Not In, [facility] [address] [address] Social History Tobacco Use Types Packs/Day Years Used Date Smoking Tobacco: Never Alcohol Use Standard Drinks/Week Comments No 0 (1 standard drink = 0.6 oz pur e alcohol) Comments Unknown Sex and Gender Information Value Date Recorded Sex Assigned at Not on file Legal Sex Female 11:55 AM EDT Gender Identity Not on file Sexual Orientation Not on file documented as of this encounter Plan of Treatment Not on file documented as of this encounter Results * MRI Lower Extremity Outside (No Interpretation) (12/23/2017 12:00 AM EDT) Narrative SYSTEMGENERATED, DOCUMENTATION - 03/07/2021 8:06 AM EDT This study is for PACS storage only and not for interpretation. us Provider Not In System [facility] OUTSIDE IMAGING W /OUT INTERPRETATION Final Result documented in this encounter Visit Diagnoses Not on filedocumented in this encounter Care Teams Cleaner Relationship Specialty Start Date End Date Lluvia Lyn MD [address] [place] [address] [address] [place] [address] PCP - General Obstetrics and Gynecology 02/19/21 Judie Villarreal MD [address] [place] [address] PCP - General Cardiology 04/10/21 documented as of this encounter Additional Source Comments The information contained in this document represents components of the legal health record. It is not the complete legal health record.[facility]
--- OUTSIDE RECORDS SUMMARY | 2024-09-28 11:38 | XMS_ITS | Encounter Summary ---
Author Organization [facility] Address [address] [facility] [address] [place] [phone] Phone Care Team Providers Care Tin Cutter Name Role Phone Lluvia Lyn MD Primary Care Provider [phone] Judie Villarreal MD Primary Care Provi natali Encounter Details Date Type Department Care Team (Late st Contact Info) Description 03/07/2021 Ancillary Orders [facility],Outside Imaging [address] [place] [address] System, Provider Not In, [facility] [address] [address] Social History Tobacco Use Types Packs/Day Years [...] * MRI Lower Extremity Outside (No Interpretation) (01/16/2021 12:00 AM EDT) Narrative SYSTEMGENERATED, DOCUMENTATION - 03/07/2021 8:02 AM EDT This study is for PACS storage only and not for interpretation. us Provider Not In System [facility] OUTSIDE IMAGING W /OUT INTERPRETATION Final Result documented in this encounter Visit Diagnoses Not on filedocumented in this encounter Care Teams Tin Cutter Relationship Specialty Start Date End Date Lluvia Lyn MD [address] [place] [address] [place] [address] PCP - General Obstetrics and Gynecology 02/19/21 uJdie Villarreal MD [address] [place] [address] PCP - General Cardiology 04/10/21 documented as of this encounter Additional Source Comments The information contained in this document represents components of the legal health record. It is not the complete legal health record.[facility]
--- OUTSIDE RECORDS SUMMARY | 2024-09-28 11:38 | XMS_ITS | Data Portability ---
Author Organization [place] - [facility], [facility] Address [address] [place] [address] Care Team Providers Care Director Of Revenue Cycle Management Name Role Phone PHILLIP THOMAS Primary Care Provider [phone] Assessment Encounter Date Assessment Date Assessment LastModified by Organization Details LastModified Time 11/21/2023 11/21/2023 I am seeing the patient today under the supervision of stew who was available but who did not see the patient. Patient comes to the office with known R lateral epicondylitis. The patient has done well with conservative management for their elbow. Has had increasing discomfort over the past several weeks without injury. Pain is generalized about the elbow. Off and on discomfort is noted at night. PFMSH and ROS has been reviewed, updated, and is located in the patient's chart. PHYSICAL FINDINGS: The patient is well appearing, in no apparent distress, alert and oriented to person, place and time. Gait is symmetric. No significant swelling, warmth or erythema about either elbow. There is mild tenderness to palpation about the lateral epicondyle. Active range of motion of the elbow is near full with elbow to shoulder. Peripheral, vascular, lymphatic examination, skin, neurologic coordination, reflexes, sensation are within normal limits. ASSESSMENT : R elbow lateral epicondylitis. PLAN: The patient has done well with conservative management in regards to the R elbow. Continued conservative management recommended. Moderating activities with the upper extremity recommended also.\Injection performed please see procedure note The patient tolerated the procedure well. Post injection precautions reviewed. The patient will follow up prn. [email or web address] Not available 11/21/2023 08:43:32 04/01/2024 04/01/2024 I am seeing the patient today under the supervision of stew who was available but who did not see the patient. HPI: Patient presents today complaining of R hand numbness and tingling. Has been going on for months. Difficulty holding things for a long periods of time and talking on the phone. The numbness and tingling wakes the patient up at night. Has numbness into the thumb index and middle finger and occasional pain. Past family, medical, social history and review of systems has been reviewed, updated and is located in the patient? s chart. Examination:R Hand exam: no warmth, effusion, erythema, ecchymosis, full ROM of the digits, good FDS/FDPS function, no triggering, good cap refill, grossly nontender,negative basal joint grind, digits are neurovascularly intact, 4/5 archaeology professor strength. Does have positive nerve compression signs with the median nerve. R wrist ordered taken and interpreted by myself show No fractures, no deformities, no DJD noted on todays exam Impression:R Carpal tunnel Plan: Patient was proceeded with injection today as well as an EMG confirmed carpal tunnel symptoms [facility] speech recognition motion study technician software was used to create portions of this document. An attempt at proofreading has been made to minimize errors. Please call for corrections. [email or web address] Not available 04/01/2024 08:24:35 07/29/2024 07/29/2024 I am seeing the patient today under the supervision of Dr. Simon who was available but who did not see the patient. HPI: Follow up after EMG history of CMC joint osteoarthritis or patient was having numbness rule out carpal tunnel EMG was within normal limits presents today to discuss further options Past family, medical, social history and review of systems has been reviewed, updated and is located in the patient? s chart. Examination: R Hand exam: no warmth, effusion, erythema, ecchymosis, full ROM of the digits, good FDS/FDPS function, no triggering, good cap refill, positive basal joint grind tender over the base of bilateral CMC joints, digits are neurovascularly intact, 4/5 archaeology professor strength. X-rays reviewed at [facility] bilateral first CMC joint osteoarthritis Impression: R first CMC joint osteoarthritis Plan: Concerned that CMC inflammation can be causing some of her residual carpal tunnel which was not picked up on on EMG. Recommended CMC joint osteoarthritis injection please see procedure note call questions or concerns call me with any other issues if no better in 3 weeks for follow-up discuss possible injection into her shoulder [facility] speech recognition motion study technician software was used to create portions of this document. An attempt at proofreading has been made to minimize errors. Please call for corrections. [email or web address] Not available 07/29/2024 08:38:13 Plan of Treatment Reminders Order Date Submit Date Provider Last Modified By Organization Details Last Modified Time Details Appointments None recorded. Lab None recorded. Referral None recorded. Procedures nerve conduction study/EMG, upper extremity (PROC) - RUE EMG EVAL FOR UPPER EXTREMITY NUMBNESS, TINGLING, AND PAIN 2023 024 [facility], [address] [place] [address], [place], [address], 12:44:44 Surgeries None recorded. Imaging None recorded. Medication Orders None recorded. Patient TargetsNo targets recorded. Patient InstructionsNo instructions recorded. Reason for Referral None Reported. Results Created Date Observation Date Name Description Value Unit Range Abnormal Flag Note LastModifiedBy Organization Detail LastModifiedTime 01/16/20 24 10/26/2018 imagi ng/di agnos tic resul t No observ ation record ed. [email or web address] Not Available 12/19 15:55:02 01/16/20 24 09/28/2018 imagi ng/di agnos tic resul t No observ ation record ed. [email or web address] Not Available 12/19 15:55:05 01/16/20 24 10/26/2018 imagi ng/di agnos tic resul t No observ ation record ed. [email or web address] Not Available 12/19 15:55:06 01/16/20 24 07/17/2018 imagi ng/di agnos tic resul t No observ ation record ed. [email or web address] Not Available 12/19 15:55:13 01/16/20 24 07/17/2018 imagi ng/di agnos tic resul t No observ ation record ed. [email or web address] Not Available 12/19 15:55:15 01/16/20 24 09/22/2019 imagi ng/di agnos tic resul t No observ ation record ed. [email or web address] Not Available 12/19 15:55:22 01/16/20 24 01/16/2021 imagi ng/di john tic resul t No observ ation record ed. [email or web address] Not Available 12/19 15:55:28 06/23/19 25 06/23/2024 nerve condu ction study /EMG, upper extre mity (PROC ) No observ ation record ed. [facility] [address] [place], [address], 06/24/2024 14:26:01 06/23/19 25 06/23/2024 nerve condu ction study /EMG, upper extre mity (PROC ) No observ ation record ed. [facility] [address] [place], [address], 06/24/2024 12:44:44 Result Notes None recorded. Problems Name Problem SNOMED Code Status Onset Date Resolution Date Notes Provider Name and Address Organization Details Recorded Time Lateral epicondylit is of right humerus 6560162047832 07 Active 2023 Arsalan Padilla PA-C [address], [place], [address], [facility] 4 08:44:11 Carpal tunnel syndrome of right wrist 4783259899253 08 Active 2023 Arsalan Padilla PA-C [address], [place], [address], [facility] 4 08:24:43 Arthropathy of joint of hand 670310431 Active 2024 Arsalan Padilla PA-C [address], [place], [address], [facility] 5 08:38:21 Problem Notes None recorded. Procedures Surgical History Date Name Laterality Status Provider Name and Address Organization Details Recorded Time 07/29/2024 [facility] Inj completed Arsalan Padilla PA-C [address], [place], [address], [facility] 07/29/2024 08:38:30 04/01/2024 JZCT inj completed Arsalan Padilla PA-C [address], [place], [address], [facility] 04/01/2024 08:24:55 11/21/2023 JZLat Epi completed Arsalan Padilla PA-C [address], [place], [address], [facility] 11/21/2023 08:44:02 Imaging Results Imaging Date Name Status LastModified by [facility] Details LastModified Time 10/26/2018 imaging/diagnos tic result completed Information not available 01/16/2024 15:55:02 09/28/2018 imaging/diagnos tic result completed Information not available 01/16/2024 15:55:05 10/26/2018 imaging/diagnos tic result completed Information not available 01/16/2024 15:55:06 07/17/2018 imaging/diagnos tic result completed Information not available 01/16/2024 15:55:13 07/17/2018 imaging/diagnos tic result completed Information not available 01/16/2024 15:55:15 09/22/2019 imaging/diagnos tic result completed Information not available 01/16/2024 15:55:22 01/16/2021 imaging/diagnos tic result completed Information not available 01/16/2024 15:55:28 06/23/2024 nerve conduction study/EMG, upper extremity (PROC) completed [facility] [address] [place], [address], 06/24/2024 14:26:01 06/23/2024 nerve conduction study/EMG, upper extremity (PROC) completed [facility] [address] [place], [address], 06/24/2024 12:44:44 Procedure Notes None recorded. Medical Equipment None Reported. Allergies Allergen ID Allergen Name Allergen Category Reaction Reaction Severity Criticality Documentation Date Start Date Code Code System Note Provider Name and Address Organization Details Recorded Time 13644 latex environme nt,medica tion Not available Not available Not available 07/21/20232017 20224 91 RxNorm Not Available [facility] 12:19:27 Medications Name Sig Start Date Stop Date Status Note LastModified by Organization Details LastModified Time gabapentin 600 mg tablet TAKE 1 TO 2 TABLETS BY MOUTH TWICE A DAY NEEDED FOR PAIN active Not Available Not Available No t Available azithromyci n 250 mg tablet TAKE 1 TABLET BY MOUTH EVERY DAY FOR 4 DAYS active Not Available Not Available No t Available amitriptyli ne 75 mg tablet TAKE 1 TABLET BY MOUTH EVERY DAY AT BEDTIME active Not Available Not Available No t Available fluconazole 150 mg tablet TAKE 1 TABLET BY MOUTH NOW, REPEAT IN 3 DAYS IF SYMPTOMS NO RESOLVED active Not Available Not Available No t Available citalopram 10 mg tablet TAKE 1 TABLET BY MOUTH EVERY DAY active Not Available Not Available No t Available valacyclovi r 1 gram tablet TAKE 2 TABLETS BY MOUTH EVERY 12 HOURS NEEDED FOR OUTBREAK active Not Available Not Available No t Available ondansetron HCl 4 mg tablet TAKE 1 TABLET BY MOUTH EVERY 8 HOURS NEEDED FOR NAUSEA AND VOMITING active Not Available Not Available No t Available prednisone 20 mg tablet TAKE 2 TABLETS BY MOUTH EVERY DAY FOR 5 DAYS 11/20 completed Not Available Not Available Not Available sumatriptan 50 mg tablet TAKE 1 TABLET AT ONSET OF HEADACHES , REPEAT IN 2 HOURS IF NEEDED UP TO 4 TABLETS/D AY active Not Available Not Available No t Available Tegretol XR 100 mg tablet,exte nded release TAKE 1 TABLET BY MOUTH TWICE A DAY active Not Available Not Available No t Available methocarbam ol 750 mg tablet 1 TABLET BY MOUTH 3 TIMES A DAY,X5 DAYS active Not Available Not Available No t Available nitrofurant oin macrocrysta l 100 mg capsule TAKE 1 CAPSULE BY MOUTH FOLLOWING INTERCOUR SE FOR UTI PREVENTIO N active Not Available Not Available No t Available pravastatin 20 mg tablet TAKE 1 TABLET BY MOUTH EVERY DAY active Not Available Not Available No t Available estradiol 0.01% (0.1 mg/gram) vaginal cream INSERT 1 GRAM INTRAVAGI ELIZABETH 2 TIMES PER WEEK AT BEDTIME active Not Available Not Available No t Available methylpredn isolone 4 mg tablets in a dose pack TAKE 6 TABLETS BY MOUTH EVERY DAY FOR 1 DAY THEN DECREASE 1 TABLET EVERY DAY UNTIL FINISHED 11/20 completed Not Available Not Available Not Available fluticasone propionate 50 mcg/actuati on nasal spray,suspe nsion USE 1 SPRAY IN EACH NOSTRIL EVERY MORNING NEEDED FOR NASAL CONGESTIO N active Not Available Not Available No t Available loratadine 10 mg tablet TAKE 1 TABLET BY MOUTH EVERY DAY active Not Available Not Available No t Available Ventolin HFA 90 mcg/actuati on aerosol inhaler INHALE 2 PUFFS INTO THE LUNGS EVERY 4 HOURS NEEDED FOR WHEEZING/ SHORTNESS OF BREATH. active Not Available Not Available No t Available ezetimibe 10 mg tablet TAKE 1 TABLET BY MOUTH EVERY DAY active Not Available Not Available No t Available Tegretol TEGretol 200MG Tablet 2023 active Statu s: 'Curr ent'; Not Available Not Available Not Available oxycodone HCl-oxycodo ne-ASA 1Q 4-[address] WHILE ON THIS MEDICATIO N 11/20 completed Statu s: 'Curr ent'; Not Available Not Available Not Available Vitals Date Recorded Body height Body mass index (BMI) Body weight Provider Name and Address Organization Details Last Updated DateTime 11/21/2023 160.02 cm 20.9 kg/m2 06106.9 g LEIDA HEMPHILL [facility] 11/21/2023 08:37:09 Date Recorded Body height Body mass index (BMI) Body weight Provider Name and Address Organization Details Last Updated DateTime 04/01/2024 160.02 cm 20.9 kg/m2 92725.9 g [facility] 04/01/2024 07:45:08 Date Recorded Body height Body mass index (BMI) Body weight Provider Name and Address Organization Details Last Updated DateTime 07/29/2024 160.02 cm 20.9 kg/m2 36463.9 g [facility] 07/29/2024 08:31:35 Social History None recorded. Functional Status None recorded. Mental Status None recorded. Family History Nothing Reported. Medical History No medical history recorded. Gynecological HistoryNo gynecological history recorded. Obstetrics History GPAL:G 0 P 0 0 0 0 Past Encounters Encounter ID Performer Location Encounter Start Date Encounter Closed Date Diagnosis/Indication Diagnosis SNOMED-CT Code Diagnosis ICD10 Code Diagnosis Note [id number] Arsalan Padilla PA-C [facility] [address] [place] [address] 11/21/2023 08:31:34 12/19/2023 09:28:43 Lateral epicondylitis of right humerus 7160433773 63566 M77.11 [id number] Arsalan Padilla PA-C [facility] [address] [place] [address] 04/01/2024 07:38:42 04/28/2024 11:55:30 Lateral epicondylitis of right humerus 9177969504 99319 M77.11 Carpal lorraine filomena syndrome of right wrist 3223528609 63882 G56.01 [id number] Arsalan Padilla PA-C [facility] [address] [place] [address] 07/29/2024 08:27:24 08/13/2024 15:04:32 Carpal tunnel syndrome of right wrist 0615774353 97761 G56.01 Arthropath y of joint of hand 530846574 M19.049 Health Concerns Section Related Observation LastModified by Organization Detai ls LastModified Time None Recorded Concern Status LastModified by Organization Details LastModified Time None Recorded Advance Directives Directive None Recorded Payers Encounter Date Sequence Insurance Name Policy Number Policy Schilling Covered Member ID Schilling Member ID Guarantor Name 11/21/2023 1 [facility] [id number] Gilda Nolan [id number] Gilda Nolan 04/01/2024 1 [facility] [id number] Gilda Nolan [id number] Gilda Nolan 07/29/2024 1 [facility] [id number] Gilda Nolan [id number] Gilda Nolan OBGyn Episode No OBEpisode recorded.
--- OUTSIDE RECORDS SUMMARY | 2024-09-28 11:38 | XMS_ITS | Clinical Summary ---
Author Organization [employer] Address [address] [facility] [place] [address] Care Team Providers Care Bilingual Nanny Name Role Phone Judie Villarreal MD Primary Care Provi natali Allergies Active Allergy Reactions Criticality Noted Date Comments Amoxicillin 07/19/2021 Latex, Natural Rubber 10/28/2016 Medications docusate sodium (COLACE) 100 MG capsule Take 1 capsule (100 mg total) by mouth 2 (two) times a day Active gabapentin (NEURONTIN) 600 MG tablet Take 1 tablet (600 mg total) by mouth 3 (three) times a day Active amitriptyline (ELAVIL) 75 MG tablet Take by mouth nightly. Active citalopram (CeleXA) 20 MG tablet Take 1 tablet (20 mg total) by mouth daily Active ondansetron (ZOFRAN) 4 MG tablet Take 1 tablet (4 mg total) by mouth every 8 (eight) hours as needed for nausea or vomiting Active valACYclovir (VALTREX) 1000 MG tablet Take 1 tablet (1,000 mg total) by mouth 2 (two) times a day Active GABAPENTIN ORAL Take 1,200 mg by mouth. Active ZOFRAN, HYDROCHLORIDE, 4 mg tablet 05/06/20 17 Active LINZESS 290 mcg cap 06/30/19 18 Active ranitidine (ZANTAC) 150 MG tablet 07/03/19 18 Active FLOVENT HFA 110 mcg/actuation inhaler 05/25/19 18 Active CRANBERRY FRUIT EXTRACT (CRANBERRY CONCENTRATE ORAL) Take by mouth. Activ e bacillus coagulans-inulin 1 billion-250 cell-mg cap Take 250 mg by mouth. Active esomeprazole (NexIUM) 20 MG capsule Take 1 capsule (20 mg total) by mouth Active ibuprofen (ADVIL,MOTRIN) 800 MG tablet TAKE 1 TABLET BY MOUTH 3 TIMES A DAY 0 11/11/19 19 Active pediatric multivitamin liquid Take 5 mL by mouth Active BOTOX 200 unit solr 11/28/19 19 Active amitriptyline (ELAVIL) 75 MG tablet TAKE 1 TABLET BY MOUTH ONCE DAILY AT BEDTIME 05/14/20 19 Active citalopram (CeleXA) 10 MG tablet 08/18/19 20 Active carBAMazepine (TEGretol XR) 100 MG 12 hr tablet 03/28/20 21 Active estradioL (ESTRACE) 0.01 % (0.1 mg/gram) vaginal cream 03/26/20 21 Active SUMAtriptan (IMITREX) 50 MG tablet 03/25/20 21 Active amitriptyline (ELAVIL) 10 MG tablet amitriptyline Take No date recorded No form recorded No frequency recorded No route recorded No set duration recorded No set duration amount recorded active No dosage strength recorded No dosage strength units of measure recorded Active lidocaine HCL 2 % soln Gargle and spit 10-15ml every 3-4 hours as needed for throat pain. Max 8 doses/day. May dilute to facilitate gargling. 100 mL 06/22/19 22 Active ProAir HFA 90 mcg/actuation inhaler 07/16/19 22 Active nitrofurantoin (MACRODANTIN) 100 MG capsule TAKE 1 CAPSULE BY MOUTH FOLLOWING INTERCOURSE FOR UTI PREVENTION 06/12/19 22 Active omeprazole (PriLOSEC) 40 MG capsule TAKE 1 CAPSULE BY MOUTH EVERY DAY 05/25/19 22 Active cephALEXin (KEFLEX) 500 MG capsule Keflex Take 1 capsule 4 times per day for 7 days [id number] capsule 4 times per day No route recorded 7 days active 500 mg 10/23/19 20 Active [employer]icaid COVID-19 Ag Home Test kit 06/05/19 23 Active doxycycline (ADOXA) 100 MG tablet TAKE 1 TABLET BY MOUTH 2 TIMES A DAY FOR 7 DAYS, AVOID UV LIGHT EXPOSURE WHILE TAKING 05/21/19 23 Active fluconazole (DIFLUCAN) 150 MG tablet Take 1 tablet (150 mg total) by mouth 06/29/19 22 Active fluconazole (DIFLUCAN) 150 MG tablet TAKE 1 TABLET BY MOUTH ONCE AND REPEAT IF SYMPTOMS PERSIST AFTER 72 HOURS GO TO OFFICE IF NO IMPROVE 04/19/20 22 Active loratadine (CLARITIN) 10 mg tablet Take 1 tablet (10 mg total) by mouth 04/22/20 22 Active loratadine (CLARITIN) 10 mg tablet TAKE 1 TABLET BY MOUTH EVERY DAY 04/22/20 22 Active methylPREDNISolo ne (MEDROL DOSEPACK) 4 mg tablet Take by mouth 02/25/20 22 Active metroNIDAZOLE (FLAGYL) 500 MG tablet TAKE 1 TABLET BY MOUTH EVERY 8 HOURS FOR 7 DAYS 05/21/19 23 Active ALBUTEROL SULFATE HFA 90 MCG/ACTUATION AEROSOL INHALER Inhale 05/24/19 22 Active carbamazepine (CARBATROL) 100 MG 12 hr capsule Take 1 capsule (100 mg total) by mouth 03/08/20 21 Active citalopram hydrobromide (CITALOPRAM ORAL) Take 30 mg by mouth 07/01/19 17 Active estradioL (ESTRACE) 0.01 % (0.1 mg/gram) vaginal cream Insert 1 g into the vagina 03/26/20 21 Active fluticasone propionate (FLONASE) 50 mcg/actuation nasal spray Instill into each nostril 12/26/19 21 Active fluticasone propionate (FLONASE) 50 mcg/actuation nasal spray USE 1 SPRAY IN EACH NOSTRIL EVERY MORNING NEEDED FOR NASAL CONGESTION 05/01/20 22 Active fluticasone propionate (FLOVENT HFA) 110 mcg/actuation inhaler Inhale 09/29/19 21 Active valACYclovir (VALTREX) 1000 MG tablet Take 2 tablets (2,000 mg total) by mouth 08/15/19 22 Active Active Problems No known active problems Immunizations Name Administration Dates Next Due Flucelvax Trivalent PFS IM; Without Preservative (18+ mos) 01/25/2019 Social History Tobacco Use Types Packs/Day Years Used Date Smoking Tobacco: Never Smokeless Tobacco: Never Comments No Sex and Gender Information Value Date Recorded Sex Assigned at Not on file Legal Sex Female 4:07 PM EDT Gender Identity Not on file Sexual Orientation Not on file Last Filed Vital Signs Vital Sign Reading Time Taken Comments Blood Pressure 98/68 07/12/2022 11:47 AM EST Pulse 120 07/12/2022 12:01 PM EST Temperature 36.2 ??C (97.2 ??F) 07/12/2022 11:[address] Respiratory Rate 18 07/12/2022 11:47 AM EST Oxygen Saturation 100% 07/12/2022 11:47 AM EST Inhaled Oxygen Concentration - - Weight 62.1 kg (137 lb) 10/28/2016 5:36 PM EDT Height 160 cm (5' 3 ) 10/28/2016 5:36 PM EDT Body Mass Index 24.27 10/28/2016 5:36 PM EDT Plan of Treatment Health Maintenance Due Date Last Done Comments Colorectal Cancer: COLONOSCO PY Screening every 10 yrs (or Modifier) 1973 Depression: Screening Annual ly using PHQ-2/9 in Adults 18 yrs or above (or HM Modifier)([facility]) 09/08/1991 Hepatitis C Virus Infection in Adolescents and Adults: Screening (or Modifier) ([facility]) 09/08/1991 [facility] Screening Reminder: Denise ricci for all adults ([facility]) 09/08/1991 Tobacco Smoking Cessation: i n Adults excluding Women: Behavioral and Pharmacotherapy Interventions ([facility]) 09/08/1991 Colorectal Cancer Screening 45 -75 Yrs (or HM Modifier) 2018 Colorectal Cancer: FLEXIBLE SIGMOIDOSCOPY Screening every 5 yrs 2018 Colorectal Cancer: Fecal Imm unochemical Test (FIT) Annually [facility] 2018 Colorectal Cancer: High-sens itivity gFOBT Screening Annually [facility] 2018 Colorectal Cancer: Stool Col oguard Screening every 3 yrs 2018 Colorectal Cancer:CT Colonog fritz Screening every 5 yrs 2018 Lipid Screening: Every 5 yrs for Women aged 45+ (or HM Modifier) ([facility]) 09/08/2019 Breast Cancer: Screening Denise keiry age 50-74 yrs (or HM Modifier)([facility]) 09/08/2023 Pneumococcal Vaccination Scr eening: Patients 50+ yrs of age ([facility]) (2 of 2 - PCV) 09/08/2023 11/01/2010 Zoster/Shingles Vaccine Seri es Screening: Adults aged 18+ yrs (or HM Modifiers)([facility]) (1 of 2) 09/08/2023 COVID-19 Vaccine Screening: Initial Series and Booster Status ([facility]) ( - 2023- season) 2024 Flu Vaccination: Yearly for ages 18mos through 64 years (or Modifier)([facility]) 12/17/2024 01/25/2019 DTaP/Tdap/Td Vaccines ([facility]) (2 - Td or Tdap) 9 09/15/2018 Pneumococcal Vaccination Scr eening: Pts 0-19 & 19-49 yrs of age ([facility]) Discontinued 11/01/2010 Medical Devices Not on file Insurance [facility] Care Teams Bilingual Nanny Relationship Specialty Start Date End Date Judie Villarreal MD [address] [place] [address] PCP - Desk Assistant 10/28/16
--- OUTSIDE RECORDS SUMMARY | 2024-09-28 11:38 | XMS_ITS | Clinical Summary ---
Author Organization [facility] Address [address] [facility] [address] [place] [address] Phone Care Team Providers Care Heel Attacher Wood Name Role Phone Judie Villarreal MD Primary Care Provi natali Allergies Active Allergy Reactions Criticality Noted Date Comments Doxycycline Other (See Comments) 11/05/2013 vaginal bleeding Latex, Natural Rubber 10/28/2016 Sulfa (Sulfonamide Antibiotics) Other (See Comments) 11/05/2013 vaginal bleeding Medications GABAPENTIN ORAL Take 1,200 mg by mouth. Active CRANBERRY FRUIT EXTRACT (CRANBERRY ORAL) Take by mouth. Activ e multivitamin Liqd Take 5 mL by mouth daily. Active citalopram (CELEXA) 20 MG tablet Take 20 mg by mouth daily. Active baclofen (LIORESAL) 20 MG tablet Take 20 mg by mouth 3 (three) times a day. Active ASCORBATE CALCIUM (VITAMIN C ORAL) Take by mouth. Activ e esomeprazole (NEXIUM) 22.3 mg capsule Take 20 mg by mouth daily before breakfast. Active amitriptyline (ELAVIL) 75 MG tablet Take by mouth nightly. Active fluticasone propionate (FLONASE) 50 mcg/actuation nasal spray 1 spray by Nasal route daily. Active bacillus coagulans-inul in 1 billion-250 cell-mg Cap Take 250 mg by mouth daily. Active VALACYCLOVIR HCL (VALTREX ORAL) Take by mouth. Activ e amitriptyline (ELAVIL) 10 MG tablet amitriptyline Take No date recorded No form recorded No frequency recorded No route recorded No set duration recorded No set duration amount recorded active No dosage strength recorded No dosage strength units of measure recorded Active gabapentin (NEURONTIN) 600 MG tablet 3 (three) times a day. Active NITROFURANTOIN ORAL nitrofurantoin Take No date recorded No form recorded No frequency recorded No route recorded No set duration recorded No set duration amount recorded suspended No dosage strength recorded No dosage strength units of measure recorded Active PROAIR HFA 90 mcg/actuation inhaler 1 Active carBAMazepine (TEGRETOL XR) 100 MG 12 hr tablet 1 Active estradioL (ESTRACE) 0.01 % (0.1 mg/gram) vaginal cream 1 Active BOTOX 200 unit SolR 1 Active ondansetron (ZOFRAN) 4 MG tablet Take 4 mg by mouth every 8 (eight) hours as needed. Active SUMAtriptan (IMITREX) 50 MG tablet 1 Active Active Problems Problem Noted Date Diagnosed Date Nasal obstruction 05/27/2016 Pelvic pain 11/05/2013 Overview (07/08/2014): Pelvic Pain Social History Tobacco Use Types Packs/Day Years Used Date Smoking Tobacco: Never Alcohol Use Standard Drinks/Week Comments No 0 (1 standard drink = 0.6 oz pur e alcohol) Education Answer Date Recorded Are you interested in more education? Not on macey e 09/13/2022 Are you concerned about learning? Not on file 09/13/2022 No 09/13/2022 No 09/13/2022 Digital Access Answer Date Recorded No 10/14/2022 No 10/14/2022 No 10/14/2022 Reliable internet access at home? Not on file 10/14/2022 Device with a working camera? Not on file Comments Unknown Sex and Gender Information Value Date Recorded Sex Assigned at Not on file Legal Sex Female 11:55 AM EDT Gender Identity Not on file Sexual Orientation Not on file Last Filed Vital Signs Vital Sign Reading Time Taken Comments Blood Pressure 88/57 11/05/2013 4:14 PM EDT Pulse 127 11/05/2013 4:14 PM EDT Temperature - - Respiratory Rate - - Oxygen Saturation - - Inhaled Oxygen Concentration - - Weight 67.6 kg (149 lb) 04/10/2021 2:22 PM EST Height 160 cm (5' 3 ) 04/10/2021 2:22 PM EST Body Mass Index 26.39 04/10/2021 2:22 PM EST Plan of Treatment Health Maintenance Due Date Last Done Comments CARBAMAZEPINE (TEGRETOL) LEVEL 1973 LIPID PANEL 1973 DEPRESSION SCREENING 1985 HEPATITIS B SCREENING 09/08/1991 HEPATITIS C SCREENING 09/08/1991 HIV ONE-TIME SCREENING (18-65 YEARS) 09/08/1991 HEPATITIS B VACCINES (1 of 3 - 19+ 3-dose series) 1992 PAP SMEAR 1994 MAMMOGRAM 2013 COLOGUARD 2018 COLONOSCOPY 2018 COLORECTAL CANCER SCREENING 2018 FIT TEST 2018 FOBT 2018 SIGMOIDOSCOPY 2018 VIRTUAL COLONOSCOPY 2018 PNEUMOCOCCAL VACCINES (50+ years) (1 of 1 - PCV) 09/08/2023 ZOSTER VACCINES (1 of 2) 09/08/2023 INFLUENZA VACCINE (#1) 2023 3, 06/15/2021, 01/25/2019, Additional history exists COVID-19 VACCINE ( - 2023- season) 2024 Adult Td,Tdap Booster 02/26/2033 02/26/2023 SMOKING STATUS SCREENING (Once After 26 Yrs) Completed 05/27/2016 HEPATITIS A VACCINES Aged Out No long er eligible based on patient's age to complete this topic HIB VACCINES Aged Out No longer eligi ble based on patient's age to complete this topic MENINGOCOCCAL VACCINES (ACWY) Aged Out No longer eligible based on patient's age to complete this topic Medical Devices Not on file Insurance [facility] [employer] [address] [place] [address] [address] [address] [place] [address] [address] [place] [address] [place] [address] [address] [place] [address] [place] [address] [employer] [facility] [employer] Care Teams Heel Attacher Wood Relationship Specialty Start Date End Date Judie Villarreal MD [address] [place] [id number] PCP - General Cardiology 04/10/21 Additional Source Comments The information contained in this document represents components of the legal health record. It is not the complete legal health record.[facility]
--- OUTSIDE RECORDS SUMMARY | 2024-09-28 11:38 | XMS_ITS | Encounter Summary ---
Author Organization [facility] Address [address] [facility] [address] [place] [address] Phone Care Team Providers Care Pattern Setter Name Role Phone Lluvia Lyn MD Primary Care Provider [phone] Judie Villarreal MD Primary Care Provi natali Encounter Details Date Type Department Care Team (Late st Contact Info) Description 03/07/2021 Ancillary Orders [facility],Outside Imaging [address] [place] [address] System, Provider Not In, [facility] [address] [address] Social History Tobacco Use Types Packs/Day Years [...] * MRI Lower Extremity Outside (No Interpretation) (12/16/2017 12:00 AM EDT) Narrative SYSTEMGENERATED, DOCUMENTATION - 03/07/2021 8:07 AM EDT This study is for PACS storage only and not for interpretation. us Provider Not In System PhD IMG OUTSIDE IMAGING W /OUT INTERPRETATION Final Result documented in this encounter Visit Diagnoses Not on filedocumented in this encounter Care Teams Pattern Setter Relationship Specialty Start Date End Date Lluvia Lyn MD [address] [facility] [address] [place] [address] PCP - General Obstetrics and Gynecology 02/19/21 Judie Villarreal MD [address] [place] [address] PCP - General Cardiology 04/10/21 documented as of this encounter Additional Source Comments The information contained in this document represents components of the legal health record. It is not the complete legal health record.[facility]
== END 2024-09-28 12:16 | disposition home or self-care (01) ==
LOC: HO.HSMS 10:31
PROVIDERS: PCP Internal Medicine; Visit Provider Psychiatry & Neurology Neurology
DX: G43.719 Chronic migraine without aura, intractable, without status migrainosus (principal)
CPT/HCPCS: 64615

== ENCOUNTER → 2024-09-28 10:30 | Outpatient (BNVA) | payer OTHER, SELFPAY | PROVIDERS: PCP Internal Medicine; Visit Provider Psychiatry & Neurology Neurology | DX: G43.719 Chronic migraine without aura, intractable, without status migrainosus (principal) | CPT/HCPCS: 64615; 99211; J0585 ==

== ENCOUNTER 2025-01-04 08:01 | Outpatient (AMB) | payer OTHER, SELFPAY ==
[2025-01-04 08:13] VITALS: BP 112/70; PULSE 63; O2SAT 100; BMI 19.9
--- NOTE | 2025-01-04 08:13 | MHC.OFFVIS ---
Vital Signs 01/04/25 08:13 Height 5 ft 3 in Weight 112 lb 4 oz BMI 19.9 BP 112/70 Blood Pressure Location Rt brachial Position Sitting Pulse 63 Pulse Source Pulse Oximeter Pulse Oximetry (%) 100 Oxygen Delivery Method Room Air Intake Visit Reasons: Botox Intake Note: Botox Accompanied by: Self / Same As Patient Allergies adhesive Allergy (Mild, Verified 12/01/24 08:46) red and blotchy latex Allergy (Mild, Verified 12/01/24 08:46) Hives Medication List - Last Reconciled 01/04/25 by Rica Rothman MD amitriptyline 75 mg PO BEDTIME carbamazepine ER (Tegretol XR) 100 mg PO BID 90 days citalopram 20 mg PO DAILY citalopram 10 mg PO DAILY 90 days cranberry fruit 400 mg PO DAILY esomeprazole magnesium (Nexium) 20 mg PO DAILY estradiol 0.01%(0.1mg/gram) 1 g vaginal 2XW gabapentin TAKE 1 TO 2 TABLETS BY MOUTH TWICE A DAY NEEDED FOR PAIN loratadine 10 mg PO DAILY onabotulinumtoxinA (Botox) to be injected by physician intramuscularly; Inject muscle of head and neck over 31 sites every 3 months ondansetron HCl 4 mg PO Q8H PRN sumatriptan succinate 1 tab at onset of headaches , repeat in 2 hrs if needed upto 4tabs /day HPI Comments Details: ??? 49y/o female comes for treatment of migraines with botox. How many migraine days prior to botox- 30 days /month How long do the migraines last1-2 days Intensity of [id number]/10 ER visits related to migraine- multiple Effectiveness of botox from last two treatment(s) How many migraine days since receiving treatment: 1-2 days a month Change? in intensity of migraine?decreased Change in frequency of migraine?decreased Change in use of acute medication for migraine?rare use Change in quality of life?improved ER visits related to migraine?none Have at least three months elapsed since last treatment- yes ??? Most frequent reported adverse reactions following injection of botox for chronic migraine include neck pain (9%), headache(5%), eyelid ptosis(4%), migraine(4%), muscular weakness(4%), musculuskeletal stiffness(4%), bronchitis(3%), injection site pain (3%), musculoskeletal pain(3%), myalgia(3%), facial paresis(2%), HTN(2%) and muscle spasms(2%) were discussed in detail. ??? Botulinum toxin typeA 200units Lot no [id number] expiration Mar 2026 was diluted with 4 cc of normal saline . ??? Muscles injected- ??? Frontalis 4 sites ??? Temporalis- 8 sites ??? Occipitalis- 6 sites ??? Cervical paraspinals- 4 sites ??? Trapezius- 6 sites-10 units each fire operations forester 2 sites Procerus 1 site ??? 5 units each in 31 site ??? Total use- 185units ??? Discarded-15units [facility] Medical History Chronic migraine without aura, intractable, without status migrainosus Facial pain Problems related to lack of adequate sleep Fibromyalgia History of ITP Anxiety Arthritis Surgical History History of ankle surgery H/O: hysterectomy S/P repair of nasal septum Family History Father HBP (high blood pressure) High cholesterol Mother Fibromyalgia Depression Acute arthritis Diverticulitis Sister Kidney problem Son ADHD Social History Alcohol intake: never Patient Tobacco Use Status: Never used Tobacco Substance Use Type: Marijuana Physical Exam Const Orientation/consciousness: patient oriented x3 HEENT Head: Yes normal to inspection, Yes normocephalic and Yes atraumatic Eyes Pupils: Equal, round and reactive pupils present Neuro General: patient oriented x3, gait normal, tone normal, moves all extremities and no focal motor deficits Cranial nerves: Yes CN's II-XII intact bilaterally, Yes Equal, round and reactive pupils present and Yes Normal facial strength present Gait exam (Neuro): Normal gait present Motor exam (neuro): 5/5 motor strength present throughout Office Procedures Botulinum toxin Injection 33811 - Migraine Procedure code (CPT) selection complete Office Meds onabotulinumtoxinA 200 unit solution for injection Performing Provider: Rica Rothman MD Performing Location: [facility] [place] [facility] Administered by: Rica Rothman MD on 01/04/25 08:25 Dose Route Admin Location Dispensed Lot Number Expiration Date NDC Process Server 185 unit subcut 200 units [id number] ALLERGAN/BOTOX Total Dispensed Waste 200 units 7.5 % Comments: see hpi Assessment & Plan Assessment & Plan (1) Chronic migraine without aura, intractable, without status migrainosus: Code(s): G43.719 - Chronic migraine without aura, intractable, without status migrainosus Category: Medical Plan Patient tolerated the procedure well she will call with any side effects Orders: Orders AMB Botulinum toxin Injection Today G43.719 - Chronic migraine without aura, intractable, without status migrainosus Coding Level of Care Code Est Pt Level 1 (26216) Diagnoses Chronic migraine without aura, intractable, without status migrainosus G43.719 CPT Codes Botox Injection - Botox 3: 77399 - Migraine ([id number])
== END 2025-01-04 08:24 | disposition home or self-care (01) ==
LOC: HO.HSMS 08:02
PROVIDERS: PCP Internal Medicine; Visit Provider Psychiatry & Neurology Neurology
DX: G43.719 Chronic migraine without aura, intractable, without status migrainosus (principal)
CPT/HCPCS: 64615; 99499

== ENCOUNTER → 2025-01-04 08:01 | Outpatient (BNVA) | payer OTHER, SELFPAY | PROVIDERS: PCP Internal Medicine; Visit Provider Psychiatry & Neurology Neurology | DX: G43.719 Chronic migraine without aura, intractable, without status migrainosus (principal) | CPT/HCPCS: 64615; J0585 ==

== ENCOUNTER 2025-04-12 07:54 | Outpatient (AMB) | payer OTHER, SELFPAY ==
--- NOTE | 2025-04-12 07:54 | A.OFFVIS_ITS ---
Vital Signs 04/12/25 07:55 Height 5 ft 2 in Weight 119 lb 6 oz BMI 21.8 BP 108/64 Blood Pressure Location Rt brachial Position Sitting Pulse 105 H Pulse Source Pulse Oximeter Pulse Oximetry (%) 98 Oxygen Delivery Method Room Air Intake Visit Reasons: Botox Intake Note: Botox 200 Epic [place] Specialist Required: No Accompanied by: Self / Same As Patient Allergies adhesive Allergy (Mild, Verified 04/12/25 07:55) red and blotchy latex Allergy (Mild, Verified 04/12/25 07:55) Hives Medication List - Last Reconciled 04/12/25 by Rica Rothman MD amitriptyline 75 mg PO BEDTIME carbamazepine ER (Tegretol XR) 100 mg PO BID 90 days citalopram 20 mg PO DAILY citalopram 10 mg PO DAILY 90 days cranberry fruit 400 mg PO DAILY esomeprazole magnesium (Nexium) 20 mg PO DAILY estradiol 0.01%(0.1mg/gram) 1 g vaginal 2XW gabapentin TAKE 1 TO 2 TABLETS BY MOUTH TWICE A DAY NEEDED FOR PAIN loratadine 10 mg PO DAILY onabotulinumtoxinA (Botox) to be injected by physician intramuscularly; Inject muscle of head and neck over 31 sites every 3 months ondansetron HCl 4 mg PO Q8H PRN sumatriptan succinate 1 tab at onset of headaches , repeat in 2 hrs if needed upto 4tabs /day HPI Comments Details: ??? 49y/o female comes for treatment of migraines with botox. How many migraine days prior to botox- 30 days /month How long do the migraines last1-2 days Intensity of /10 ER visits related to migraine- multiple Effectiveness of botox from last two treatment(s) How many migraine days since receiving treatment: 1-2 days a month Change? in intensity of migraine?decreased Change in frequency of migraine?decreased Change in use of acute medication for migraine?rare use Change in quality of life?improved ER visits related to migraine?none Have at least three months elapsed since last treatment- yes ??? Most frequent reported adverse reactions following injection of botox for chronic migraine include neck pain (9%), headache(5%), eyelid ptosis(4%), migraine(4%), muscular weakness(4%), musculuskeletal stiffness(4%), bronchitis( 3%), injection site pain (3%), musculoskeletal pain(3%), myalgia(3%), facial paresis(2%), HTN(2%) and muscle spasms(2%) were discussed in detail. ??? Botulinum toxin typeA 200units Lot no [id number] expiration Apr 2027 was diluted with 4 cc of normal saline . ??? Muscles injected- ??? Frontalis 4 sites ??? Temporalis- 8 sites ??? Occipitalis- 6 sites ??? Cervical paraspinals- 4 sites ??? Trapezius- 6 sites-10 units each polymerization supervisor 2 sites Procerus 1 site ??? 5 units each in 31 site ??? Total use- 185units ??? Discarded-15units [facility] Medical History Chronic migraine without aura, intractable, without status migrainosus Facial pain Problems related to lack of adequate sleep Fibromyalgia History of ITP Anxiety Arthritis Surgical History History of ankle surgery H/O: hysterectomy S/P repair of nasal septum Family History Father HBP (high blood pressure) High cholesterol Mother Fibromyalgia Depression Acute arthritis Diverticulitis Sister Kidney problem Son ADHD Social History Alcohol intake: never Patient Tobacco Use Status: Never used Tobacco Substance Use Type: Marijuana Physical Exam Vital Signs: Last Vital Signs Pulse 105 H 04/12/25 07:55 BP 108/64 04/12/25 07:55 Pulse Ox 98 04/12/25 07:55 Oxygen Delivery Method Room Air 04/12/25 07:55 BMI result Body Mass Index 21.8 Const Orientation/consciousness: patient oriented x3 HEENT Head: Yes normal to inspection, Yes normocephalic and Yes atraumatic Eyes Pupils: Equal, round and reactive pupils present Neuro General: patient oriented x3, gait normal, tone normal, moves all extremities and no focal motor deficits Cranial nerves: Yes CN's II-XII intact bilaterally, Yes Equal, round and reactive pupils present and Yes Normal facial strength present Gait exam (Neuro): Normal gait present Motor exam (neuro): 5/5 motor strength present throughout Office Procedures Botulinum toxin Injection 21166 - Migraine Procedure code (CPT) selection complete Office Meds onabotulinumtoxinA 200 unit solution for injection Performing Provider: Rica Rothman MD Performing Location: [facility] [place] [facility] Administered by: Rica Rothman MD on 04/12/25 09:58 Dose Route Admin Location Dispensed Lot Number Expiration Date [facility] Chassis Mechanic 185 unit subcut 200 units [id number] ALLERGAN /BOTOX Total Dispensed Waste 200 units 7.5 % Comments: see hpi Assessment & Plan Assessment & Plan (1) Chronic migraine without aura, intractable, without status migrainosus: Code(s): G43.719 - Chronic migraine without aura, intractable, without status migrainosus Category: Medical Plan Patient tolerated the procedure well she will call with any side effects Orders: Orders AMB Botulinum toxin Injection Today G43.109 - Migraine with aura, not intractable, without status migrainosus Coding Level of Care Code Est Pt Level 1 (40179) Diagnoses Chronic migraine without aura, intractable, without status migrainosus G43.719 CPT Codes Botox Injection - Botox 3: 40187 - Migraine ([id number])
[2025-04-12 07:55] VITALS: BP 108/64; PULSE 105; O2SAT 98; BMI 21.8
--- OUTSIDE RECORDS SUMMARY | 2025-04-12 08:01 | XMS_ITS | Encounter Summary ---
Author Organization [facility] Address [address] [facility] [address] [place] [address] Phone Care Team Providers Care Tow Car Driver Name Role Phone Lluvia Lyn MD Primary Care Provider [phone] Judie Villarreal MD Primary Care Provi natali Encounter Details Date Type Department Care Team (Late st Contact Info) Description 03/07/2021 Ancillary Orders [facility],Outside Imaging [address] [place] [address] System, Provider Not In, [place] [address] Social History Tobacco Use Types Packs/Day Years Used Date Smoking Tobacco: Never Alcohol Use Standard Drinks/Week Comments No 0 (1 standard drink = 0.6 oz pur e alcohol) Comments Unknown Sex and Gender Information Value Date Recorded Sex Assigned at Female 02/12/2025 2:43 PM EDT Legal Sex Female 11:55 AM EDT Gender Identity Female 02/12/2025 2:43 PM EDT Sexual Orientation Straight 02/12/2025 2: 43 PM EDT documented as of this encounter Plan of [...] on filedocumented in this encounter Care Teams Tow Car Driver Relationship Specialty Start Date End Date Lluvia Lyn MD [address] [facility] [address] [place] [address] PCP - General Obstetrics and Gynecology 02/19/21 Judie Villarreal MD [address] [place] [address] PCP - General Cardiology 04/10/21 documented as of this encounter Additional Source Comments The information contained in this document represents components of the legal health record. It is not the complete legal health record.[facility]
--- OUTSIDE RECORDS SUMMARY | 2025-04-12 08:01 | XMS_ITS | Encounter Summary ---
Author Organization [facility] Address [address] [facility] [address] [place] [address] Phone Care Team Providers Care Engineering Technical Analyst Name Role Phone Lluvia Lyn MD Primary Care Provider [phone] Judie Villarreal MD Primary Care Provi natali Encounter Details Date Type Department Care Team (Late st Contact Info) Description 03/07/2021 Ancillary Orders [facility],Outside Imaging [address] [place] [address] System, Provider Not In, [place] [address] Social History Tobacco Use Types Packs/Day Years [...] on filedocumented in this encounter Care Teams Engineering Technical Analyst Relationship Specialty Start Date End Date Lluvia Lyn MD [address] [facility] [address] [place] [address] PCP - General Obstetrics and Gynecology 02/19/21 Judie Villarreal MD [address] [place] [address] PCP - General Cardiology 04/10/21 documented as of this encounter Additional Source Comments The information contained in this document represents components of the legal health record. It is not the complete legal health record.[facility]
--- OUTSIDE RECORDS SUMMARY | 2025-04-12 08:01 | XMS_ITS | Encounter Summary ---
Author Organization [facility] Address [address] [employer] [facility] [address] [place] [address] Phone Care Team Providers Care Certified Nursing Assistant Instructor Name Role Phone Lluvia Lyn MD Primary Care Provider [phone] uJdie Villarreal MD Primary Care Provi natali Encounter Details Date Type Department Care Team (Late st Contact Info) Description 03/07/2021 Ancillary Orders [facility],Outside Imaging [address] [place] [address] System, Provider Not In, [place] [address] Social History Tobacco Use Types Packs/Day Years [...] on filedocumented in this encounter Care Teams Certified Nursing Assistant Instructor Relationship Specialty Start Date End Date Lluvia Lyn MD [address] [facility] [address] [place] [address] PCP - General Obstetrics and Gynecology 02/19/21 Judie Villarreal MD [address] [place] [address] PCP - General Cardiology 04/10/21 documented as of this encounter Additional Source Comments The information contained in this document represents components of the legal health record. It is not the complete legal health record.[facility]
--- OUTSIDE RECORDS SUMMARY | 2025-04-12 08:01 | XMS_ITS | Encounter Summary ---
Author Organization [facility] Address [address] [place] [phone] Phone Care Team Providers Care Endocrinology Specialist Name Role Phone Judie Villarreal MD Primary Care Provi natali Encounter Details Date Type Department Care Team ([facility] st Contact Info) Description 02/12/2025 Ophth Exam [facility] [place] [address] [place] [address] Zeyad Callaway MD, PhD [address] [place] [address] [email or web address] Social History Tobacco Use Types Packs/Day Years Used Date Smoking Tobacco: Never Smokeless Tobacco: Never Alcohol Use Standard Drinks/Week Comments No 0 (1 standard drink = 0.6 oz pur e alcohol) Education Answer Date Recorded Are you interested in more education? Not on macey e 09/13/2022 Are you concerned about learning? Not on file 09/13/2022 No 09/13/2022 No 09/13/2022 Food Answer Date Recorded Within the past 6 months we worried whether our food would run out before we got money to buy more. Never True 02/12/2025 Within the past 6 months the food we bought just didn't last and we didn't have enough money to get more. Never True Residential Stability Answer Date Recor ded What is your housing situation today? I have elia sing 02/12/2025 How many times have you move d in the past 12 months? Zero (I did not move) 02/12/2025 Paying for Meds Answer Date Recorded Do you have trouble paying for medicines? No 02/12/2025 Paying Utility Bills Answer Date Record ed Do you have trouble paying your heating or elect ricity bill? No 02/12/2025 Transportation Answer Date Recorded Has the lack of transportati on kept you from medical appointments or from getting medications? No 02/12/2025 Digital Access Answer Date Recorded No 02/12/2025 Yes 02/12/2025 Do you have reliable internet access at home? Ye s 02/12/2025 Do you have a device (e.g., phone, tablet, computer) with a working camera? Yes 02/12/2025 Intimate Partner Violence Answer Date R ecorded Are you denied basic needs s uch as food, clothing, or medical care? No 02/12/2025 In the past 12 months have y ou been in a relationship with a person who hurts, threatens, or tries to control you? No 02/12/2025 Are you denied basic needs s uch as food, clothing, or medical care? No 02/12/2025 In the past 12 months have y ou been in a relationship with a person who hurts, threatens, or tries to control you? No 02/12/2025 Comments Unknown Sex and Gender Information Value Date Recorded Sex Assigned at Female 02/12/2025 2:43 PM EDT Legal Sex Female 11:55 AM EDT Gender Identity Female 02/12/2025 2:43 PM EDT Sexual Orientation Straight 02/12/2025 2: 43 PM EDT documented as of this encounter Functional Status * Calculated C-SSRS Risk Score (Lifetime/Recent) Answer Date of Assessment Author No Risk Indicated 02/12/2025 2:14 PM EDT Cami Marie RN * [place] Suicide Severity Rating Scale (Screener/Recent Self-Report) Question Answer Date of Assessment Author 1. Wish to be (Past 1 Month) No 025 2:14 PM EDT Cami Marie, ONEIL 2. Non-Specific Active Suici casi Thoughts (Past 1 Month) No 02/12/2025 2:14 PM EDT Amisha Marie RN 6. Suicidal Behavior (Lifetime) No 09/27/202 5 2:14 PM EDT Cami Marie, ONEIL documented as of this encounter Plan of Treatment Not on file documented as of this encounter Visit Diagnoses Not on filedocumented in this encounter Care Teams Endocrinology Specialist Relationship Specialty Start Date End Date Judie Villarreal MD [address] [place] [address] PCP - General Cardiology 04/10/21 documented as of this encounter Additional Source Comments The information contained in this document represents components of the legal health record. It is not the complete legal health record.[facility]
--- OUTSIDE RECORDS SUMMARY | 2025-04-12 08:01 | XMS_ITS | Clinical Summary ---
Author Organization [facility] Address [address] [facility] [address] [place] [phone] Phone Care Team Providers Care Tactical Air Control Party Manager Name Role Phone Judie Villarreal MD Primary Care Provi natali Allergies Active Allergy Reactions Criticality Noted Date Comments Adhesive Unknown 04/01/2025 Amoxicillin Other (See Comments) 12/17/2013 Bupropion Hcl Other (See Comments) 12/17/2013 Doxycycline Other (See Comments) 11/05/2013 vaginal bleeding Latex, Natural Rubber 10/28/2016 Pravastatin GI Upset 02/12/2025 Sulfa (Sulfonamide Antibiotics) Other (See Comments) 11/05/2013 [...] SUMAtriptan (IMITREX) 50 MG tablet 1 Active ezetimibe (ZETIA) 10 mg tablet Take 1 tablet by mouth. 5 Active loratadine (CLARITIN) 10 mg tablet Take 10 mg by mouth daily. Active carbamazepine (TEGRETOL ORAL) TEGretol 200MG Tablet 4 Active albuterol 90 mcg/actuation inhaler See Instructions, INHALE 2 PUFFS BY MOUTH EVERY 6 HOURS NEEDED FOR WHEEZING, # 8.5 each, 1 Refills, Maintenance, 12/15/24 11:46:00 AM EDT, [id number], 25, INHALE 2 PUFFS BY MOUTH EVERY 6 HOURS NEEDED FOR WHEEZING, 160, cm, 12/07/24 8:43:00 EDT, Height, 51.25, kg, 09/07/24 8:10:00 EDT, Dry Weight 5 Active albuterol (VENTOLIN HFA) 90 mcg/actuation inhaler Inhale 180 mcg into the lungs. 4 Active cefuroxime (CEFTIN) 250 MG tablet Take 1 tablet by mouth 2 (two) times a day. 5 Active docusate sodium (COLACE) 100 MG capsule Take 100 mg by mouth 2 (two) times a day. Active Active Problems Problem Noted Date Diagnosed Date Fibromyalgia 11/24/2024 Assessment & Plan (11/24/2024 4:15 PM EDT): See above* Trigeminal neuralgia 11/24/2024 Assessment & Plan (11/24/2024 4:16 PM EDT): Followed by neurology Is taking tegretol, gabapentin Citalopram Elavil and baclofen Uses cannabis with good effect Consider acupuncture Continue with regimen and follow with neurology/pain management Nausea 11/24/2024 Assessment & Plan (11/24/2024 4:17 PM EDT): Occasional nausea and decreased appetite Has omeprazole and zofran as needed Cannabis helps Will continue with regimen and follow up with GI as needed Medical cannabis use 11/24/2024 Assessment & Plan (11/24/2024 4:18 PM EDT): Cannabis helps with conditions No adverse effects Remains a good candidate for mmj Nasal obstruction 05/27/2016 Pelvic pain 11/05/2013 Overview (07/08/2014): Pelvic Pain Encounters Date Type Department Care Team Description 04/01/2025 6:10 PM EST Office Visit [facility] at [address] [address] Marilyn Minaya, SADA Chronic left shoulder pain (Primary Dx) 02/12/2025 1:54 PM EDT - 02/12/2025 10:26 PM EDT Emergency [facility] [place] Emergency Department [address] [place] [address] Elliot Herbert MD Discharge Disposition: Home or Self Care 02/12/2025 Ophth Exam [facility] [place] Emergency Department [address] [place] [address] Zeyad Callaway MD, PhD from Last 3 Months Social History Tobacco Use Types Packs/Day Years Used Date Smoking Tobacco: Never Smokeless Tobacco: Never Tobacco Cessation:Counseling Given: Not Answered Alcohol Use Standard Drinks/Week Comments No 0 [...] tries to control you? No 02/12/2025 Comments No Sex and Gender Information Value Date Recorded Sex Assigned at Female 02/12/2025 2:43 PM EDT Legal Sex Female 11:55 AM EDT Gender Identity Female 02/12/2025 2:43 PM EDT Sexual Orientation Straight 02/12/2025 2: 43 PM EDT Last Filed Vital Signs Vital Sign Reading Time Taken Comments Blood Pressure 133/92 04/01/2025 6:11 PM EST Pulse 92 04/01/2025 6:11 PM EST Temperature 36.7 C (98 F) 04/01/2025 6:11 PM EST Respiratory Rate 18 04/01/2025 6:11 PM EST Oxygen Saturation 100% 04/01/2025 6:11 PM EST Inhaled Oxygen Concentration - - Weight 51.7 kg (114 lb) 04/01/2025 6:11 PM EST Height 160 cm (5' 3 ) 02/12/2025 2:07 PM EDT Body Mass Index 20.19 02/12/2025 2:07 PM EDT Plan of Treatment Health Maintenance Due Date Last Done Comments CARBAMAZEPINE (TEGRETOL) LEVEL 1973 LIPID PANEL 1973 DEPRESSION SCREENING 1985 HEPATITIS C SCREENING 09/08/1991 HIV ONE-TIME SCREENING (18-6 5 YEARS) 09/08/1991 PAP SMEAR 1994 MAMMOGRAM 2013 COLOGUARD 2018 COLONOSCOPY 2018 COLORECTAL CANCER SCREENING 2018 FIT TEST 2018 FOBT 2018 SIGMOIDOSCOPY 2018 VIRTUAL COLONOSCOPY 2018 PNEUMOCOCCAL VACCINES (50+ years) (1 of 1 - PCV) 09/08/2023 ZOSTER VACCINES (1 of 2) 09/08/2023 INFLUENZA VACCINE (#1) 2024 3, 06/15/2021, 01/23/2016 COVID-19 VACCINE (1 - 2024-2 6 season) 2025 Adult Td,Tdap Booster 02/26/2033 02/26/2023 RSV VACCINE (1 - 1-dose 75+ series) 2048 SMOKING STATUS SCREENING (On ce After 26 Yrs) Completed 04/01/2025 HEPATITIS A VACCINES Aged Out No long er eligible based on patient's age to complete this topic HIB VACCINES Aged Out No longer eligi ble based on patient's age to complete this topic IPV VACCINES Aged Out No longer eligi ble based on patient's age to complete this topic MENINGOCOCCAL VACCINES (ACWY) Aged Out No longer eligible based on patient's age to complete this topic MENINGOCOCCAL VACCINES (B) Aged Out N o longer eligible based on patient's age to complete this topic Medical Devices Not on file Insurance [facility] NET FULL Member Subscriber Plan / Payer (Ef fective 2025-Present) Name:Gena Wilhelm Relation to Subscriber:Self Name:GENA WILHELM Payer ID:Not on file Group ID:Not on file Type:Medicaid Address: [address] [employer] Member Subscriber Plan / Payer (Ef fective 2022-Present) Name:Gena Wilhelm Relation to Subscriber:Self Name:Gena Wilhelm Payer ID:Not on file Type:Medicaid Address: [address] [employer] NET FULL Member Subscriber Plan / Payer (Ef fective 2025-Present) Name:Gena Wilhelm Relation to Subscriber:Self Name:GENA WILHELM Payer ID:Not on file Group ID:Not on file Type:Medicaid Address: [address] [employer] Member Subscriber Plan / Payer (Ef fective 2022-) Name:Gena Wilhelm Relation to Subscriber:Self Name:Gena Wilhelm Payer ID:Not on file Type:Medicaid Address: [address] [employer] [facility] SAFETY NET FULL Member Subscriber Plan / Payer (Ef fective 2025-Present) Name:Gena Wilhelm Relation to Subscriber:Self Name:GENA WILHELM Payer ID:Not on file Group ID:Not on file Type:Medicaid Address: [address] [employer] Member Subscriber Plan / Payer (Ef fective 2022-Present) Name:Gena Wilhelm Relation to Subscriber:Self Name:Gena Wilhelm Payer ID:Not on file Type:Medicaid Address: [address] [employer] [facility] NET FULL ACO Member Subscriber Plan / Payer (Ef fective 2022-Present) Name:Gena Wilhelm Relation to Subscriber:Self Name:Gena Wilhelm Payer ID:Not on file Type:Medicaid Address: [address] [employer] [facility] FULL [employer] [facility] FULL Member Subscriber Plan / Payer (Ef fective 2025-Present) Name:Gena Wilhelm Relation to Subscriber:Self Name:GENA WILHELM Payer ID:Not on file Group ID:Not on file Type:Medicaid Address: [address] [employer] Member Subscriber Plan / Payer (Ef fective 2022-Present) Name:Gena Wilhelm Relation to Subscriber:Self Name:Gena Wilhelm Payer ID:Not on file Type:Medicaid Address: [address] DIRECT [facility] ACO HEALTH SAFETY NET [address] [address] [place] [address] [employer] [facility] FULL Care Teams Tactical Air Control Party Manager Relationship Specialty Start Date End Date Judie Villarreal MD [address] [place] [address] PCP - General Cardiology 04/10/21 Additional Source Comments The information contained in this document represents components of the legal health record. It is not the complete legal health record.[facility]
== END 2025-04-12 08:14 | disposition home or self-care (01) ==
LOC: HO.HSMS 07:54
PROVIDERS: PCP Internal Medicine; Visit Provider Psychiatry & Neurology Neurology
DX: G43.719 Chronic migraine without aura, intractable, without status migrainosus (principal)
CPT/HCPCS: 64615

== ENCOUNTER → 2025-04-12 07:54 | Outpatient (BNVA) | payer OTHER, SELFPAY | PROVIDERS: PCP Internal Medicine; Visit Provider Psychiatry & Neurology Neurology | DX: G43.109 Migraine with aura, not intractable, without status migrainosus (principal); G43.719 Chronic migraine without aura, intractable, without status migrainosus | CPT/HCPCS: 64615; 99211; J0585 ==